=== PATIENT | female | born 1935 ===

== ENCOUNTER 2018-05-07 07:33 | Inpatient (IN) | payer MEDICAID ==
[2018-05-07] MEDS ORDERED: Iodixanol 320 MG/ML 100 ML BOTTLE IV ONE (07:41)
[2018-05-07 07:46] LABS: BASO % 0.5 % (0.0-2.0); EOS # 0.1 K/uL (0.0-0.7); EOS % 0.8 % (0.0-4.0); HEMOGLOBIN 11.6 g/dL (11.0-16.0); LYMPH # 1.9 K/uL (1.0-4.3); LYMPH % 22.9 % (20.0-40.0); MEAN CELL VOLUME 78.5 fL (81.0-99.0); MEAN CORPUSCULAR HEMOGLOBIN 25.2 pg (27.0-31.0); MEAN CORPUSCULAR HGB CONC 32.1 g/dL (33.0-37.0); MEAN PLATELET VOLUME 8.7 fL (7.2-11.7); MONO # 0.4 K/uL (0.0-0.8); MONO % 5.3 % (0.0-10.0); NEUT # 5.8 K/uL (1.8-7.0); NEUT % 70.5 % (50.0-75.0); RBC 4.58 Mil/uL (3.80-5.20); RED CELL DISTRIBUTION WIDTH 15.8 % (11.5-14.5); WHITE BLOOD COUNT 8.2 K/uL (4.8-10.8)
[2018-05-07 08:04] LABS: ALB/GLOB RATIO 1.4 (1.0-2.1); ALT/SGPT 10 U/L (9-52); AST/SGOT 33 U/L (14-36); BLOOD UREA NITROGEN 15 mg/dL (7-17); CALCIUM 9.2 mg/dl (8.6-10.4); GFR NON-AFRICAN AMERICAN > 60; HDL CHOLESTEROL 29 mg/dL (30-70)
[2018-05-07 08:17] LABS: LDL CHOLESTEROL 79 mg/dL (0-129)
[2018-05-07 08:34] VITALS: BMI 32.5
[2018-05-07] MEDS ORDERED: levETIRAcetam 1,000 MG in Sodium Chloride 0.9% 100 ML IVPB STA (08:38)
[2018-05-07 08:53] LABS: INR 7.5; PROTHROMBIN TIME 82.6 SECONDS (9.7-12.2)
--- NOTE | 2018-05-07 08:58 | C.PDOC ---
History Of Present Illness 82 year old female with PMHx of atrial fibrillation, stroke, diabetes, HPT, HLD, renal disease, kidney stones, and breast cancer resulting in double mastectomy presents with the family for evaluation of involuntary face twitching pulling the face towards the left and weakness that started last night. Family notes hx of previous stroke, seen in [facility] [place] at that time for left sided deficit. Per family, current symptoms are consistent with last stroke. Family reports the pt was walking up the stairs last night when she suddenly collapsed to her knees, no trauma sustained. After the fall the pt was put to bed and family notes pt had disturbed sleep throughout the night. Per family the pt is under a lot of stress due to son in laws today. In the ED the pt has slurred speech, questionable due to mouth twitching. Medications: taking coumadin for afib. Code stroke called. Initial contact 7:36am Time Seen by Provider: 05/07/18 07:47 Chief Complaint (Nursing): Weakness/Neurological Deficit History Per: Patient, Family History/Exam Limitations: no limitations Onset/Duration Of Symptoms: Days Current Symptoms Are (Timing): Still Present Fall Associated With With Symptoms: Yes, No Injury As Result Of Fall Recent travel outside of the [facility]: No - Symptoms Of CVA Current Coumadin Use?: Yes Past Medical History Reviewed: Historical Data, Nursing Documentation, Vital Signs Vital Signs: Last Vital Signs Temp 98.9 F 05/07/18 07:34 Pulse 106 H 05/07/18 08:39 Resp 25 H 05/07/18 08:39 BP 159/100 H 05/07/18 08:39 Pulse Ox 99 05/07/18 08:39 - Medical History PMH: HTN, Hyperlipidemia, Kidney Stones, Chronic Kidney Disease Surgical History: Cholecystectomy Family History: States: Unknown Family Hx - Social History Hx Alcohol Use: No Hx Substance Use: No - Immunization History Hx Tetanus Toxoid Vaccination: No Hx Influenza Vaccination: Yes Hx Pneumococcal Vaccination: Yes Review Of Systems Except As Marked, All Systems Reviewed And Found Negative. Constitutional: Negative for: Fever, Chills Cardiovascular: Positive for: Other ((+) left-sided pressure over the chest.) Gastrointestinal: Negative for: Nausea, Vomiting, Diarrhea Neurological: Positive for: Other ((+) heaviness to LT arm.). Negative for: Headache, Dizziness Physical Exam - Physical Exam Appears: No Acute Distress Skin: Warm, Dry, No Rash Head: Atraumatic, Normacephalic Eye(s): bilateral: Normal Inspection, EOMI Oral Mucosa: Moist Neck: Normal ROM, Supple Chest: Symmetrical, No Deformity Cardiovascular: Rhythm Regular, No Murmur Respiratory: Normal Breath Sounds, No Rales, No Rhonchi, No Wheezing Gastrointestinal/Abdominal: Normal Exam, Soft, No Tenderness Extremity: Bilateral: Atraumatic, Normal Color And Temperature Neurological/Psych: Oriented x3, No Normal Speech (slurred. ), Other ((+) Heaviness to LT arm. (+) LUE drift. (+) subjective decreased sensation to LUE. ) ED Course And Treatment - Laboratory Results Result Diagrams: 05/07/18 07:42 05/07/18 07:42 Lab Results: PT 82.6 SECONDS (9.7-12.2) H 05/07/18 07:42 INR 7.5 H* 05/07/18 07:42 APTT 76 SECONDS (21-34) H 05/07/18 07:42 Troponin I < 0.0120 ng/mL (0.00-0.120) 05/07/18 07:42 Total Bilirubin 0.5 mg/dL (0.2-1.3) 05/07/18 07:42 AST 33 U/L (14-36) 05/07/18 07:42 ALT 10 U/L (9-52) 05/07/18 07:42 Alkaline Phosphatase 70 U/L (38-126) 05/07/18 07:42 Total Protein 6.9 g/dL (6.3-8.3) 05/07/18 07:42 Albumin 4.0 g/dL (3.5-5.0) 05/07/18 07:42 Globulin 2.9 gm/dL (2.2-3.9) 05/07/18 07:42 Albumin/Globulin Ratio 1.4 (1.0-2.1) 05/07/18 07:42 ECG: Interpreted By Me, Viewed By Me ECG Rhythm: Atrial Fibrillation Interpretation Of ECG: no st elevations. no wave changes. Rate From EC O2 Sat by Pulse Oximetry: 99 (RA) Pulse Ox Interpretation: Normal - CT Scan/US CT Head Other Rad Studies (CT/US): Read By Radiologist, Radiology Report Reviewed CT/US Interpretation: Other Rad Studies (CT/US): Read By Radiologist. CT/US Interpretation: IMPRESSION: 1. There is generalized parenchymal atrophy noted as demonstrated by symmetrical dilatation of ventricles and sulci. 2. Chronic periventricular and subcortical microvascular disease is seen. 3. Encephalomalacia involving right parietal lobe, most compatible with an old infarct. 4. No acute intracranial pathology. Consider follow up with MRI diffusion if clinically warranted. CTA Neck Other Rad Studies (CT/US): Read By Radiologist, Radiology Report Reviewed CT/US Interpretation: Other Rad Studies (CT/US): Read By Radiologist. CT/US Interpretation: IMPRESSION: Markedly enlarged heterogenous and nodular right thyroid gland compatible with a goiter. Mild scattered atherosclerotic changes are noted throughout left and right carotid system without hemodynamically significant stenosis. Unremarkable CTA of the head and neck otherwise. CT Head w/ IV contrast Other Rad Studies (CT/US): Radiology Report Reviewed MRI Brain Other Rad Studies (CT/US): Read By Radiologist, Radiology Report Reviewed CT/US Interpretation: FINDINGS: HEMORRHAGE: None. DWI: No evidence of an acute or early subacute infarction. BRAIN PARENCHYMA: Examination is of suboptimal diagnostic quality due to patient motion. There is cystic encephalomalacia and gliosis in the right posterior temporal lobe with ex vacuo dilatation of the occipital horn of right lateral ventricle. There are moderate chronic microangiopathic changes. There is no mass, mass effect or abnormal extra-axial fluid collection. The midline sagittal structures are normal. VENTRICLES: There is mild age-related global parenchymal volume loss and proportionate enlargement of the ventricles and cortical sulci. CRANIUM: Unremarkable. ORBITS: Grossly unremarkable. PARANASAL SINUSES/MASTOIDS: Clear. VASCULAR SYSTEM: There are normal signal voids in the larger in tracranial arteries. OTHER FINDINGS: None. IMPRESSION: No acute intracranial abnormality. Cystic encephalomalacia and gliosis in the right posterior temporal lobe, sequela of remote MCA territory infarction. Moderate chronic microangiopathic changes and mild age-related global parenchymal volume loss. NIHSS Stroke Scale 2 - Date/Time Evaluation Performed Date Performed: 05/07/18 Time Performed: 07:35 When Was NIHSS Performed: Baseline - How Severe is the Stroke Level of Consciousness: 0=Alert LOC to Questions: 0=Both comments correct LOC to commands: 0=Obeys both correctly Best Gaze: 0=Normal Visual: 0=No visual loss Facial: 2=Partial (lower face paralysis) Motor Arm - Left: 2=Falls before 10 sec Motor Arm - Right: 0=No drift Motor Leg - Left: 1=Drift before 5 sec Motor Leg - Right: 0=No drift Limb Ataxia: 0=Absent Sensory: 1=Mild to moderate loss Best Language: 0=No aphasia Dysarthia: 1=Mild to moderate slurring Extinction & Inattention (Neglect): 0=Normal, no object Score: 7 rTPA Inclusion/Exclusion - Refusal of Treatment Patient Refused Treatment: No - Inclusion Criteria for Altepase Patient is 18 years or Older: Yes The Clinical Diagnosis of Ischemic Stroke That is Causing a Potentially Disabling Neurological Deficit: Yes Time of Onset is Well Established to be Less Than 270 Minute Before Treatment Would Begin: No Risk/Benefit Discussed With Patient/Family Member Present: No - Exclusion Criteria for Altepase Uncontrolled Hypertension at Time of Treatment (Systolic BP above 185 or Diastolic BP above 110 mmHg): No Active Internal Bleeding: No Known Bleeding Diathesis Including but Not Limited to: Platelets Below 100,000/mm,PTT Above 40 sec After Heparin Use, Current Use of Oral Anitcoagulant With INR Greater Than 1.7 or PT Greater Than 15 secs: No Evidence of an Intracranial Hemorrhage: No Evidence of Major Acute Infarct With Signs Greater Than 1/3 MCA Territory: No Suspicion of Subarachnoid Hemorrhage on Pretreatment Evaluation Even if CT Head Negative For Hemorrhage: No - Warning to TPA With Conditions Following Conditions Weighed Against Anticipated Benefit: No Additional Condition (For 3-4.5 Hour Window): Age Greater Than 80 (strove vs seizure, patient coagulopathic ), Any anticoagulant use prior to admission (Even if INR less than 1.7) Medical Decision Making Medical Decision Making: Initial plan: -Blood sent. -CTA Head/Neck -CT head -EKG -CXR -MRI of brain w/o contrast -Aspirin -Ativan -Keppra Progress/Update: Arrived 7:33am Initial contact 7:36am CAT Scan: no acute changes Case discussed with neurologist cushion worker Dr. Little, possible stroke, unclear of time of onset, possible seizure. Dr. Little recommends 1000 Keppa, 500 bid Ativan, EEG, and MRI. Troponin is unremarkable Disposition Discussed With DrCandy: Lesley Neal Counseled Patient/Family Regarding: Studies Performed, Diagnosis - Disposition Disposition: HOSPITALIZED Disposition Time: 08:56 Condition: GUARDED - Clinical Impression Clinical Impression: CVA (cerebral vascular accident), Seizure - Scribe Statement The provider has reviewed the documentation as recorded by the Scribe (Laine Cavazos) Provider Attestation: All medical record entries made by the Scribe were at my direction and personally dictated by me. I have reviewed the chart and agree that the record accurately reflects my personal performance of the history, physical exam, medical decision making, and the department course for this patient. I have also personally directed, reviewed, and agree with the discharge instructions and disposition. Decision To Admit - Pt Status Changed To: Hospital Disposition Of: Inpatient - Admit Certification Admit to Inpatient:: After my assessment, the patient will require hospitalization for at least two midnights. This is because of the severity of symptoms shown, intensity of services needed, and/or the medical risk in this patient being treated as an outpatient. - InPatient: Physician Admission Certification: I certify that this patient requires 2 or more midnights of care for the following reason:: Patient with multiple issues, stroke vs seizure, elevated INR - . Bed Request Type: Telemetry Admitting Physician: Lesley Neal Patient Diagnosis: CVA (cerebral vascular accident), Seizure
--- NOTE | 2018-05-07 09:26 | C.PDOC ---
History Of Present Illness 82 year old female with PMHx of atrial fibrillation, stroke, diabetes, HPT, HLD, renal disease, kidney stones, and breast cancer resulting in double mastectomy presents with the family for evaluation of involuntary face twitching pulling the face towards the left and weakness that started last night. Family notes hx of previous stroke, seen in [facility] [place] for left sided deficit. Per family, current symptoms are consistent with last stroke. Family reports the pt was walking up the stairs last night when she suddenly collapsed to her knees, no trauma sustained. After the fall the pt was put to bed and family notes pt had disturbed sleep throughout the night. Per family the pt is under a lot of stress due to son in laws today. In the ED the pt has slurred speech, questionable due to mouth twitching. Medications: taking coumadin for afib. Code stroke called. Initial contact 7:36am Time Seen by Provider: 05/07/18 07:47 Chief Complaint (Nursing): Weakness/Neurological Deficit History Per: Patient, Family History/Exam Limitations: no limitations Onset/Duration Of Symptoms: Hrs Current Symptoms Are (Timing): Still Present Fall Associated With With Symptoms: Yes, No Injury As Result Of Fall Recent travel outside of the [facility]: No - Symptoms Of CVA Current Coumadin Use?: Yes Recent Head Trauma: No Past Medical History Reviewed: Historical Data, Nursing Documentation, Vital Signs Vital Signs: Last Vital Signs Temp 98.9 F 05/07/18 07:34 Pulse 106 H 05/07/18 08:39 Resp 25 H 05/07/18 08:39 BP 159/100 H 05/07/18 08:39 Pulse Ox 99 05/07/18 09:21 - Medical History PMH: HTN, Hyperlipidemia, Kidney Stones, Chronic Kidney Disease Surgical History: Cholecystectomy Family History: States: Unknown Family Hx - Social History Hx Alcohol Use: No Hx Substance Use: No - Immunization History Hx Tetanus Toxoid Vaccination: No Hx Influenza Vaccination: Yes Hx Pneumococcal Vaccination: Yes Review Of Systems Except As Marked, All Systems Reviewed And Found Negative. Constitutional: Negative for: Fever, Chills Cardiovascular: Positive for: Other (left-sided pressure over the chest. ) Gastrointestinal: Negative for: Nausea, Vomiting, Diarrhea Neurological: Positive for: Other ((+) heaviness to LT arm. ). Negative for: Headache, Dizziness Physical Exam - Physical Exam Appears: No Acute Distress Skin: Warm, Dry Head: Atraumatic, Normacephalic Eye(s): bilateral: Normal Inspection, EOMI Ear(s): Bilateral: Normal Nose: Normal Oral Mucosa: Moist Neck: Normal ROM, Supple Chest: Symmetrical, No Deformity Cardiovascular: Rhythm Regular, No Murmur Respiratory: Normal Breath Sounds, No Rales, No Rhonchi, No Wheezing Gastrointestinal/Abdominal: Normal Exam, Soft, No Tenderness Extremity: Bilateral: Atraumatic, Normal Color And Temperature Neurological/Psych: Oriented x3, No Normal Speech (slurred. ), Other ((+) Heaviness to LT arm. (+) LUE drift. (+) subjective decreased sensation to LUE. ) ED Course And Treatment - Laboratory Results Result Diagrams: 05/07/18 07:42 05/07/18 07:42 Lab Results: PT 82.6 SECONDS (9.7-12.2) H 05/07/18 07:42 INR 7.5 H* 05/07/18 07:42 APTT 76 SECONDS (21-34) H 05/07/18 07:42 Troponin I < 0.0120 ng/mL (0.00-0.120) 05/07/18 07:42 Total Bilirubin 0.5 mg/dL (0.2-1.3) 05/07/18 07:42 AST 33 U/L (14-36) 05/07/18 07:42 ALT 10 U/L (9-52) 05/07/18 07:42 Alkaline Phosphatase 70 U/L (38-126) 05/07/18 07:42 Total Protein 6.9 g/dL (6.3-8.3) 05/07/18 07:42 Albumin 4.0 g/dL (3.5-5.0) 05/07/18 07:42 Globulin 2.9 gm/dL (2.2-3.9) 05/07/18 07:42 Albumin/Globulin Ratio 1.4 (1.0-2.1) 05/07/18 07:42 ECG: Interpreted By Me, Viewed By Me ECG Rhythm: Atrial Fibrillation Interpretation Of ECG: no st elevations. no wave changes. Rate From EC O2 Sat by Pulse Oximetry: 99 (RA) Pulse Ox Interpretation: Normal - CT Scan/US CT Head w/ IV contrast Other Rad Studies (CT/US): Read By Radiologist CT/US Interpretation: IMPRESSION: 1. There is generalized parenchymal atrophy noted as demonstrated by symmetrical dilatation of ventricles and sulci. 2. Chronic periventricular and subcortical microvascular disease is seen. 3. Encephalomalacia involving right parietal lobe, most compatible with an old infarct. 4. No acute intracranial pathology. Consider follow up with MRI diffusion if clinically warranted. CTA Neck Other Rad Studies (CT/US): Read By Radiologist CT/US Interpretation: IMPRESSION: Markedly enlarged heterogenous and nodular right thyroid gland compatible with a goiter. Mild scattered atherosclerotic changes are noted throughout left and right carotid system without hemodynamically significant stenosis. Unremarkable CTA of the head and neck otherwise. Medical Decision Making Medical Decision Making: Initial plan: -Blood sent. -CTA Head/Neck -CT head -EKG -CXR -MRI of brain w/o contrast -Aspirin -Ativan -Keppra Progress/Update: Arrived 7:33am Initial contact 7:36am CAT Scan: no acute changes Case discussed with neurologist correctional supervising cook Dr. Little, possible stroke, unclear of time of onset, possible seizure. Dr. Little recommends 1000 Keppa, 500 bid Ativan, EEG, and MRI. Troponin is unremarkable Disposition - Disposition Forms: [employer] ([place]) - Clinical Impression Clinical Impression: CVA (cerebral vascular accident), Seizure - Scribe Statement The provider has reviewed the documentation as recorded by the Scribe (Laine Cavazos) All medical record entries made by the Scribe were at my direction and personally dictated by me. I have reviewed the chart and agree that the record accurately reflects my personal performance of the history, physical exam, medical decision making, and the department course for this patient. I have also personally directed, reviewed, and agree with the discharge instructions and disposition.
--- NOTE | 2018-05-07 10:21 | CP.PCM.HP ---
<Toya Bateman - Last Filed: 05/07/18 13:25> History of Present Illness - History of Present Illness History of Present Illness: PGY-1 Toya Bateman D.O. H&P for Dr. Jimenez's service: Patient is an 82 yo female with Afib (on warfarin), HTN, HLD, T2DM, h/o CVA, and h/o breast cancer who presents with l-sided facial twitching and slurred speech. Patient's daughter is at bedside who helps provide the history. She states that the patient had a stroke 2.5 years ago but has no residual deficits. At baseline, patient ambulates but is slow. Last night, the patient was walking up the stairs and fell. Her family was able to catch her so that she only dropped to her knees. After this, the patient went to bed. Upon awakening this morning, the patient's daughter noticed that she had L-sided facial twitching and had unintelligible speech. When she could understand the patient, she said she was "talking nonsense." She also appeared agitated, pulling at her clothes, and seemed confused. Patient's daughter states that she has been at her baseline health prior to this- she has been eating/drinking, urinating/having BMs, denies fevers/chills. Upon arrival to the ED, patient was more coherent, but daughter states that she is not completely back to her mental baseline. She continues to be fatigued and occasionally becomes confused. She is able to move all of her limbs and her speech is clear. Patient's daughter states that twitching has stopped. Patient says that she is thirsty. Patient's daughter says that she has been compliant with her meds, and she gets her INR checked monthly. PMH: Afib (on warfarin), HTN, HLD, T2DM, h/o CVA 2.5 years ago (no residual deficits), breast cancer s/p bilateral mastectomy and chemoradiation (20 years ago in [place]), kidney stones PSH: bilateral mastectomy, cholecystectomy Meds: Warfarin 3 mg PO daily, Remeron 45 mg PO QHS, Metoprolol 25 mg PO BID, Digoxin 0.125 mg PO daily, Lipitor 10 mg PO QHS All: NKA FH: Denies history of stroke, heart disease, cancer SH: Denies alcohol, tobacco, illicit drug use. From [place] PMD: at [facility] Present on Admission - Present on Admission Any Indicators Present on Admission: No History of DVT/PE: No History of Uncontrolled Diabetes: No Urinary Catheter: No Decubitus Ulcer Present: No History Surgical Site Infection Following: None Review of Systems - Review of Systems Systems not reviewed;Unavailable: Altered Mental Status Past Patient History - Infectious Disease Hx of Infectious Diseases: None - Tetanus Immunizations Tetanus Immunization: Unknown - Past Medical History & Family History Past Medical History?: Yes Past Family History: Reviewed and not pertinent - Past Social History Smoking Status: Former Smoker Chewing Tobacco Use: No Cigar Use: No Alcohol: None Drugs: Denies Home Situation {Lives}: With Family - CARDIAC Hx Hypertension: Yes - RENAL Hx Chronic Kidney Disease: Yes Hx Kidney Stones: Yes - ENDOCRINE/METABOLIC Hx Diabetes Mellitus Type 2: Yes - HEMATOLOGICAL/ONCOLOGICAL Hx Cancer: Yes (breast) - PSYCHIATRIC Hx Substance Use: No - SURGICAL HISTORY Hx Cholecystectomy: Yes - ANESTHESIA Hx Anesthesia: Yes Hx Anesthesia Reactions: No Meds Allergies/Adverse Reactions: Allergies Allergy/AdvReac Type Severity Reaction Status Date / Time No Known Allergies Allergy Verified 05/07/18 07:34 Physical Exam - Constitutional Appears: No Acute Distress, Confused - Head Exam Head Exam: ATRAUMATIC, NORMAL INSPECTION - Eye Exam Eye Exam: EOMI, Normal appearance, PERRL - ENT Exam ENT Exam: Mucous Membranes Moist - Neck Exam Neck exam: Positive for: Normal Inspection - Respiratory Exam Respiratory Exam: Clear to Auscultation Bilateral, NORMAL BREATHING PATTERN - Cardiovascular Exam Cardiovascular Exam: REGULAR RHYTHM, Systolic Murmur - GI/Abdominal Exam GI & Abdominal Exam: Soft. absent: Tenderness - Extremities Exam Extremities exam: Positive for: pedal pulses present. Negative for: pedal edema, tenderness - Neurological Exam Neurological exam: Alert Additional comments: Patient alert and oriented to person, able to identify daughter Speech fluent Face symmetrical Patient able to move all limbs independently Motor strength: RUE 5/5, LUE 4/5 RLE 5/5, LLE 4/5 - Psychiatric Exam Additional comments: lethargic - Skin Skin Exam: Dry, Normal Color, Warm Results - Vital Signs Recent Vital Signs: Last Vital Signs Temp 97.6 F 05/07/18 09:56 Pulse 89 05/07/18 09:56 Resp 21 05/07/18 09:56 BP 136/71 05/07/18 09:56 Pulse Ox 99 05/07/18 09:56 - Labs Result Diagrams: 05/07/18 07:42 05/07/18 07:42 Labs: Laboratory Results - last 24 hr 05/07/18 05/07/18 05/07/18 07:42 07:42 07:42 WBC 8.2 RBC 4.58 Hgb 11.6 Hct 35.9 MCV 78.5 L MCH 25.2 L MCHC 32.1 L RDW 15.8 H Plt Count 244 MPV 8.7 Neut % (Auto) 70.5 Lymph % (Auto) 22.9 [place] % (Auto) 5.3 Eos % (Auto) 0.8 Baso % (Auto) 0.5 Neut # (Auto) 5.8 Lymph # (Auto) 1.9 [place] # (Auto) 0.4 Eos # (Auto) 0.1 Baso # (Auto) 0.0 PT 82.6 H INR 7.5 H* APTT 76 H Sodium 137 Potassium 4.8 Chloride 104 Carbon Dioxide 24 Anion Gap 14 BUN 15 Creatinine 0.8 Est GFR ( Amer) > 60 Est GFR (Non-Af Amer) > 60 Random Glucose 107 H Hemoglobin A1c Calcium 9.2 Total Bilirubin 0.5 AST 33 ALT 10 Alkaline Phosphatase 70 Troponin I < 0.0120 Total Protein 6.9 Albumin 4.0 Globulin 2.9 Albumin/Globulin Ratio 1.4 Triglycerides 225 H Cholesterol 138 LDL Cholesterol Direct 79 HDL Cholesterol 29 L Digoxin Blood Type Antibody Screen 05/07/18 05/07/18 05/07/18 07:42 07:42 09:03 WBC RBC Hgb Hct MCV MCH MCHC RDW Plt Count MPV Neut % (Auto) Lymph % (Auto) [place] % (Auto) Eos % (Auto) Baso % (Auto) Neut # (Auto) Lymph # (Auto) [place] # (Auto) Eos # (Auto) Baso # (Auto) PT INR APTT Sodium Potassium Chloride Carbon Dioxide Anion Gap BUN Creatinine Est GFR ( Amer) Est GFR (Non-Af Amer) Random Glucose Hemoglobin A1c 6.8 H Calcium Total Bilirubin AST ALT Alkaline Phosphatase Troponin I Total Protein Albumin Globulin Albumin/Globulin Ratio Triglycerides Cholesterol LDL Cholesterol Direct HDL Cholesterol Digoxin 0.5 L Blood Type A POSITIVE Antibody Screen Negative Assessment & Plan - Assessment and Plan (Free Text) Assessment: Patient is an 82 yo female with Afib (on warfarin), HTN, HLD, T2DM, h/o CVA, and h/o breast cancer who presents with l-sided facial twitching and slurred speech. Code stroke called. Symptoms resolved. CT head and CTA head/neck negative for acute stroke. INR supratherapeutic at 7.5. MRI braina dn echo pending. Plan: Left-sided facial weakness, slurred speech, acute, resolved- evaluate for TIA/CVA, seizure - Code stroke- NIH 7 on admission - Monitor on telemetry - Neuro checks - Seizure precautions - Fall precautions - CT head: no acute pathology - CTA head/neck: no acute pathology - MRI brain pending - Echo pending - EEG pending - Passed bedside swallow eval- dysphagia diet - NS @ 100 mL/hr - Keppra 1000 mg loading dose--> 500 mg PO BID - Neurology consulted (Han) - PT/OT/ST Supratherapeutic INR, acute - PT/INR 82.6/7.5 on admission - HOLD warfarin 3 mg PO daily - Monitor PT/INR Atrial fibrillation, chronic - Monitor on telemetry - Hold warfarin - Digoxin 0.125 mg PO daily - Dig level low (0.5) - Metoprolol 25 mg PO BID Type 2 diabetes mellitus, chronic - A1c 6.8 - Accuchecks ACHS - Hypoglycemic protocol - ISS low Hypertension, chronic - Vitals Q6H - Metoprolol 25 mg PO BID Hyperlipidemia, chronic - TG 225, chol 138, LDL 79, HDL 29 (not fasting) - Crestor 5 mg PO QHS Poor appetite - Remeron 45 mg PO QHS (home med) Ppx: VTE: SCDs, chemical anticoag contraindicated GI: not indicated Diet: dysphagia (pureed/thin liquids) Case discussed with attending, Dr. Neal. <Lesley Neal - Last Filed: 05/07/18 15:23> Results - Vital Signs Recent Vital Signs: Last Vital Signs Temp 97.8 F 05/07/18 11:01 Pulse 85 05/07/18 11:01 Resp 18 05/07/18 11:01 BP 142/64 05/07/18 11:01 Pulse Ox 99 05/07/18 11:01 - Labs Result Diagrams: 05/07/18 07:42 05/07/18 07:42 Labs: Laboratory Results - last 24 hr 05/07/18 05/07/18 05/07/18 07:42 07:42 07:42 WBC 8.2 RBC 4.58 Hgb 11.6 Hct 35.9 MCV 78.5 L MCH 25.2 L MCHC 32.1 L RDW 15.8 H Plt Count 244 MPV 8.7 Neut % (Auto) 70.5 Lymph % (Auto) 22.9 [place] % (Auto) 5.3 Eos % (Auto) 0.8 Baso % (Auto) 0.5 Neut # (Auto) 5.8 Lymph # (Auto) 1.9 [place] # (Auto) 0.4 Eos # (Auto) 0.1 Baso # (Auto) 0.0 PT 82.6 H INR 7.5 H* APTT 76 H Sodium 137 Potassium 4.8 Chloride 104 Carbon Dioxide 24 Anion Gap 14 BUN 15 Creatinine 0.8 Est GFR ( Amer) > 60 Est GFR (Non-Af Amer) > 60 Random Glucose 107 H Hemoglobin A1c Calcium 9.2 Total Bilirubin 0.5 AST 33 ALT 10 Alkaline Phosphatase 70 Troponin I < 0.0120 Total Protein 6.9 Albumin 4.0 Globulin 2.9 Albumin/Globulin Ratio 1.4 Triglycerides 225 H Cholesterol 138 LDL Cholesterol Direct 79 HDL Cholesterol 29 L Digoxin Blood Type Antibody Screen 05/07/18 05/07/18 05/07/18 07:42 07:42 09:03 WBC RBC Hgb Hct MCV MCH MCHC RDW Plt Count MPV Neut % (Auto) Lymph % (Auto) [place] % (Auto) Eos % (Auto) Baso % (Auto) Neut # (Auto) Lymph # (Auto) [place] # (Auto) Eos # (Auto) Baso # (Auto) PT INR APTT Sodium Potassium Chloride Carbon Dioxide Anion Gap BUN Creatinine Est GFR ( Amer) Est GFR (Non-Af Amer) Random Glucose Hemoglobin A1c 6.8 H Calcium Total Bilirubin AST ALT Alkaline Phosphatase Troponin I Total Protein Albumin Globulin Albumin/Globulin Ratio Triglycerides Cholesterol LDL Cholesterol Direct HDL Cholesterol Digoxin 0.5 L Blood Type A POSITIVE Antibody Screen Negative Attending/Attestation - Attestation I have personally seen and examined this patient.: Yes I have fully participated in the care of the patient.: Yes I have reviewed all pertinent clinical information: Yes Notes (Text): slurred speech,left sided weakness and confusion. History taken from her daughter at bedside. had stroke two years ago with out significant residual effect. she was unsteady and fell last night. this morning she was more confused with left weakness. Her INR is high. spoke to Dr han,no candidate for TPA patient had facial twitching since last night as per her daughter . No hsitory of seizure. H/O afib,dm ,breast ca and HTN. follow MRI brain ,continue keppra. Hodl coumadin and follow INR continue home meds digoxin,metoprolol,remoreon .asprin and crestor,continue hydration
--- NOTE | 2018-05-07 11:19 | CP.PCM.CON ---
History of Present Illness - History of Present Illness History of Present Illness: Neurology consult called by Dr. Armijo 82 yr old woman who came in as code stroke, after initially presenting with acute weakness last night. Miss Bonilla was with her family, walking up the stairs and suddenly felt weak, and went to sleep. This morning, she woke up with twitching in the left side of her face, which was almost continuous, and presented to the ER this morning, with right sided weakness and neglect. Code stroke was called and on examination, patient has right sided neglect and right sided weakness. This is new per family. There is no dysarthria, aphasia, and seizures stopped after keppra and ativan administration. NIHSS is 6 currently. She cannot receive TPA due to coumadin, and INR is quite high at 7. ROS: no headache, no nausea, no vomiting, no dizziness, no diarrhea. PMH/PSH: atrial fibrillation, on coumadin, SH/FH:Lives with family, no tobacco, no etoh. Originally from [place]. All: nkda On exam: AAOx2. Exam conducted in [place]. Speech fluent. Can name and repeat. EOMI. Has left sided neglect. No facial droop. Motor: right arm is 5/5, right leg 5/5 Left arm: 4/5, left le/5, made worse by neglect. Sensory: decresed ft, pin in left arm and left leg +2 dtr ul and ll bl. Toes downgoing. No clonus Tried to get patient to stand, but her left leg is extremely weak. Past Patient History - Past Social History Smoking Status: Former Smoker - CARDIAC Hx Hypertension: Yes - RENAL Hx Chronic Kidney Disease: Yes Hx Kidney Stones: Yes - ENDOCRINE/METABOLIC Hx Diabetes Mellitus Type 2: Yes - HEMATOLOGICAL/ONCOLOGICAL Hx Cancer: Yes (breast) - PSYCHIATRIC Hx Substance Use: No - SURGICAL HISTORY Hx Cholecystectomy: Yes - ANESTHESIA Hx Anesthesia: Yes Hx Anesthesia Reactions: No Meds Allergies/Adverse Reactions: Allergies Allergy/AdvReac Type Severity Reaction Status Date / Time No Known Allergies Allergy Verified 05/07/18 07:34 - Medications Medications: Current Medications Aspirin (Aspirin Supp) 300 mg WI DAILY YI Last Admin: 05/07/18 08:56 Dose: Not Given Physical Exam - Head Exam Head Exam: ATRAUMATIC, NORMAL INSPECTION, NORMOCEPHALIC Results - Vital Signs Recent Vital Signs: Last Vital Signs Temp 97.6 F 05/07/18 09:56 Pulse 89 05/07/18 09:56 Resp 21 05/07/18 09:56 BP 136/71 05/07/18 09:56 Pulse Ox 99 05/07/18 09:56 - Labs Result Diagrams: 05/07/18 07:42 05/07/18 07:42 Labs: Laboratory Results - last 24 hr 05/07/18 05/07/18 05/07/18 07:42 07:42 07:42 WBC 8.2 RBC 4.58 Hgb 11.6 Hct 35.9 MCV 78.5 L MCH 25.2 L MCHC 32.1 L RDW 15.8 H Plt Count 244 MPV 8.7 Neut % (Auto) 70.5 Lymph % (Auto) 22.9 [place] % (Auto) 5.3 Eos % (Auto) 0.8 Baso % (Auto) 0.5 Neut # (Auto) 5.8 Lymph # (Auto) 1.9 [place] # (Auto) 0.4 Eos # (Auto) 0.1 Baso # (Auto) 0.0 PT 82.6 H INR 7.5 H* APTT 76 H Sodium 137 Potassium 4.8 Chloride 104 Carbon Dioxide 24 Anion Gap 14 BUN 15 Creatinine 0.8 Est GFR ( Amer) > 60 Est GFR (Non-Af Amer) > 60 Random Glucose 107 H Hemoglobin A1c Calcium 9.2 Total Bilirubin 0.5 AST 33 ALT 10 Alkaline Phosphatase 70 Troponin I < 0.0120 Total Protein 6.9 Albumin 4.0 Globulin 2.9 Albumin/Globulin Ratio 1.4 Triglycerides 225 H Cholesterol 138 LDL Cholesterol Direct 79 HDL Cholesterol 29 L Digoxin Blood Type Antibody Screen 05/07/18 05/07/18 05/07/18 07:42 07:42 09:03 WBC RBC Hgb Hct MCV MCH MCHC RDW Plt Count MPV Neut % (Auto) Lymph % (Auto) [place] % (Auto) Eos % (Auto) Baso % (Auto) Neut # (Auto) Lymph # (Auto) [place] # (Auto) Eos # (Auto) Baso # (Auto) PT INR APTT Sodium Potassium Chloride Carbon Dioxide Anion Gap BUN Creatinine Est GFR ( Amer) Est GFR (Non-Af Amer) Random Glucose Hemoglobin A1c 6.8 H Calcium Total Bilirubin AST ALT Alkaline Phosphatase Troponin I Total Protein Albumin Globulin Albumin/Globulin Ratio Triglycerides Cholesterol LDL Cholesterol Direct HDL Cholesterol Digoxin 0.5 L Blood Type A POSITIVE Antibody Screen Negative - Imaging and Cardiology CT scan - head Status: Image reviewed by me, Report reviewed by me Assessment & Plan - Assessment and Plan (Free Text) Plan: Ct head: shows subacute stroke in the right parietotemporal lobe, ischemic in nature. Cta hEAD AND NECK: report pending. A/P: 82 y rold woman with what appears to be subacute stroke in right parietotemporal region, not TPA candidate, due to coumadin use and uncertain onset of symptoms. plan: 1. Admit to telemetry 2. Hold coumadin as INR is quite high 3. IV fluids Normal saline 100 ccs per hour. 4. MRI Brain without terence. 5. ECHO 6. PT ST OT Thank you Dr. [facility]
[2018-05-07] MEDS ORDERED: Glucagon Recombinant 1 mg Inj IM PRN (13:24)
[2018-05-07] MEDS ORDERED: Dextrose 50% SYRINGE Inj (50 ml) IV PRN (13:24)
[2018-05-07] MEDS: Digoxin 125 mcg (0.125 mg) Tab PO SCH (13:48)
[2018-05-07] MEDS: Sodium Chloride 0.9% 1,000 ML IV SCH (13:48)
--- NOTE | 2018-05-07 14:21 | MRI ---
Date of service: 05/07/2018 PROCEDURE: MRI BRAIN WITHOUT CONTRAST HISTORY: r/o stroke COMPARISON: CT head without contrast performed earlier the same day TECHNIQUE: Multiplanar, multisequence MR images of the brain were obtained without intravenous contrast enhancement. FINDINGS: HEMORRHAGE: None DWI: No evidence of an acute or early subacute infarction. BRAIN PARENCHYMA: Examination is of suboptimal diagnostic quality due to patient motion. There is cystic encephalomalacia and gliosis in the right posterior temporal lobe with ex vacuo dilatation of the occipital horn of right lateral ventricle. There are moderate chronic microangiopathic changes. There is no mass, mass effect or abnormal extra-axial fluid collection. The midline sagittal structures are normal. VENTRICLES: There is mild age-related global parenchymal volume loss and proportionate enlargement of the ventricles and cortical sulci. CRANIUM: Unremarkable. ORBITS: Grossly unremarkable. PARANASAL SINUSES/MASTOIDS: Clear VASCULAR SYSTEM: There are normal signal voids in the larger intracranial arteries. OTHER FINDINGS: None. IMPRESSION: No acute intracranial abnormality. Cystic encephalomalacia and gliosis in the right posterior temporal lobe, sequela of remote MCA territory infarction. Moderate chronic microangiopathic changes and mild age-related global parenchymal volume loss.
--- NOTE | 2018-05-07 15:08 | CT ---
Date of service: 05/07/2018 PROCEDURE: CT HEAD WITHOUT CONTRAST. HISTORY: Code Stroke COMPARISON: None available. TECHNIQUE: Axial computed tomography images were obtained through the head/brain without intravenous contrast. Radiation dose: Total exam DLP = 1033.87 mGy-cm. This CT exam was performed using one or more of the following dose reduction techniques: Automated exposure control, adjustment of the mA and/or kV according to patient size, and/or use of iterative reconstruction technique. FINDINGS: HEMORRHAGE: No intracranial hemorrhage. BRAIN: No mass effect or edema. Encephalomalacia right temporoparietal. No evidence of acute infarct. Patchy periventricular and deep/subcortical white matter lucency consistent with chronic microvascular ischemic change. Small old left basal ganglia lacunar infarcts. VENTRICLES: Unremarkable. No hydrocephalus. CALVARIUM: Unremarkable. PARANASAL SINUSES: Chronic bilateral maxillary sinusitis. MASTOID AIR CELLS: Unremarkable as visualized. No inflammatory changes. OTHER FINDINGS: None. IMPRESSION: No evidence of acute infarct. No intracranial mass or hemorrhage. Chronic paranasal sinusitis. 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 The preliminary findings for this examination were reported by [facility] at 12:19 a.m. on 05/07/2018. There is concurrence of this report with the preliminary findings.
--- NOTE | 2018-05-07 16:26 | CT ---
Date of service: 05/07/2018 PROCEDURE: CT Angiography of the neck and brain HISTORY: Code stroke COMPARISON: Comparison made with concurrent CT scan brain.. TECHNIQUE: Contiguous axial images of the neck and brain were obtained from the level of the vertex of the skull to the superior mediastinum in the arteriographic phase of enhancement. Coronal and sagittal reformats or also generated. IV contrast dose: 100 cc Visipaque 320 Radiation dose: Total exam DLP = 453.0 mGy-cm. This CT exam was performed using one or more of the following dose reduction techniques: Automated exposure control, adjustment of the mA and/or kV according to patient size, and/or use of iterative reconstruction technique. FINDINGS: Mild calcified atherosclerotic plaque seen along the aortic arch and origins of the great vessels however the aorta is widely patent. The common carotid arteries are also widely patent with no evidence of dissection. Minor crescentic calcified plaque along the medial aspect left carotid bifurcation however no evidence of significant stenosis. The distal internal carotid arteries including the petrous cavernous and supraclinoid segments also patent. There are however mild calcified atherosclerotic plaque changes both cavernous carotid and supraclinoid segments right greater than left left-side. Changes result in mild narrowing more so on the right side. The vertebral arteries are patent throughout without evidence of dissection. The mild asymmetry of the vertebral arteries with the left-side slightly larger in caliber than the right distally. Basilar artery is patent. There is mild asymmetry of the A1 segments right side smaller in caliber compared to the left side. The distal branches of the anterior, middle and posterior cerebral arteries are patent and relatively symmetric so far as can be seen. No evidence of large aneurysm nor vascular malformation. OTHER FINDINGS: Enlarged heterogeneous nodular appearing right lobe thyroid gland; recommend follow-up thyroid ultrasound. Suspect chronic changes of COPD. IMPRESSION: No evidence of occlusion dissection or significant stenosis despite some mild calcified plaque changes at several locations of the of both carotid circulations as detailed above Enlarged heterogeneous nodular appearing right lobe thyroid gland for which thyroid ultrasound follow-up is recommended.
--- NOTE | 2018-05-07 16:48 | RAD ---
Date of service: 05/07/2018 HISTORY: Code Stroke COMPARISON: No prior. TECHNIQUE: 1 view obtained. FINDINGS: LUNGS: No active pulmonary disease. PLEURA: No significant pleural effusion identified, no pneumothorax apparent. CARDIOVASCULAR: No aortic atherosclerotic calcification present. Normal cardiac size. No pulmonary vascular congestion. OSSEOUS STRUCTURES: No significant abnormalities. VISUALIZED UPPER ABDOMEN: Normal. OTHER FINDINGS: None. IMPRESSION: No active disease.
[2018-05-07] MEDS: (Novolin R) Insulin Human Regular 100 units/ml vial SC SCH ×2 (17:00→21:27)
[2018-05-08] MEDS: Sodium Chloride 0.9% 1,000 ML IV SCH ×3 (00:03→20:21)
--- NOTE | 2018-05-08 07:50 | CP.PCM.PN ---
<Toya Bateman - Last Filed: 05/08/18 20:03> Subjective - Date & Time of Evaluation Date of Evaluation: 05/08/18 Time of Evaluation: 07:47 - Subjective Subjective: PGY-1 Toya Bateman D.O. Medicine progress note for Dr. Palacios's service: Patient was seen and examined this morning. Over night, patient was agitated and delirious requiring 2 doses of Ativan. Patient's daughter stayed with her all night. She reported that patient was pulling at her clothes and bedding, and she was attempting to take the daughter's keys and leave. She was not aware that she was in a hospital or why. Daughter says this is an acute change from baseline. At time of exam, patient is lethargic. She is oriented to self and place. She is able to state the year and president. Objective - Vital Signs/Intake and Output Vital Signs (last 24 hours): Temp Pulse Resp BP Pulse Ox 97.3 F L 90 18 128/65 96 05/08/18 06:30 05/08/18 06:30 05/08/18 06:30 05/08/18 06:30 05/08/18 06:30 - Medications Medications: Current Medications Aspirin (Aspirin Supp) 300 mg [place] DAILY [facility] Last Admin: 05/07/18 08:56 Dose: Not Given Dextrose (Dextrose 50% Inj) 0 ml IV STAT PRN; Protocol PRN Reason: Hypoglycemia Protocol Dextrose (Glutose 15) 0 gm PO ONCE PRN; Protocol PRN Reason: Hypoglycemia Protocol Digoxin (Digoxin) 0.125 mg PO DAILY [facility] Last Admin: 05/07/18 13:48 Dose: 0.125 mg Glucagon (Glucagen Diagnostic Kit) 0 mg IM STAT PRN; Protocol PRN Reason: Hypoglycemia Protocol Dextrose (Dextrose 5% In Water 1000 Ml) 1,000 mls @ 0 mls/hr IV .Q0M PRN; Protocol PRN Reason: Hypoglycemia Protocol Sodium Chloride (Sodium Chloride 0.9%) 1,000 mls @ 100 mls/hr IV .Q10H [facility] Last Admin: 05/08/18 00:03 Dose: Not Given Insulin Human Regular (Novolin R) 0 unit SC ACHS [facility]; Protocol Last Admin: 05/07/18 21:27 Dose: Not Given Levetiracetam (Keppra) 500 mg PO BID [facility] Last Admin: 05/07/18 18:45 Dose: 500 mg Metoprolol Tartrate (Lopressor) 25 mg PO BID [facility] Last Admin: 05/07/18 18:46 Dose: 25 mg Mirtazapine (Remeron) 45 mg PO [facility] Last Admin: 05/07/18 22:20 Dose: 45 mg Nicotine (Nicoderm Cq) 1 patch TD DAILY [facility] Rosuvastatin Calcium (Crestor) 5 mg PO [facility] Last Admin: 05/07/18 22:21 Dose: 5 mg - Labs Labs: 05/07/18 07:42 05/07/18 07:42 PT 82.6 SECONDS (9.7-12.2) H 05/07/18 07:42 INR 7.5 H* 05/07/18 07:42 APTT 76 SECONDS (21-34) H 05/07/18 07:42 - Constitutional Appears: No Acute Distress, Other (lethargic) - Head Exam Head Exam: ATRAUMATIC, NORMAL INSPECTION - Eye Exam Eye Exam: EOMI, Normal appearance, PERRL (small) - ENT Exam ENT Exam: Mucous Membranes Moist - Neck Exam Neck Exam: Normal Inspection - Respiratory Exam Respiratory Exam: Clear to Ausculation Bilateral, NORMAL BREATHING PATTERN - Cardiovascular Exam Cardiovascular Exam: RRR, +S1, +S2 - GI/Abdominal Exam GI & Abdominal Exam: Soft. absent: Tenderness - Extremities Exam Extremities Exam: Normal Inspection - Back Exam Back Exam: NORMAL INSPECTION - Neurological Exam Neurological Exam: Alert, Awake, CN II-XII Intact Neuro motor strength exam: Left Upper Extremity: 5, Right Upper Extremity: 5, Left Lower Extremity: 5, Right Lower Extremity: 5 - Skin Skin Exam: Dry, Normal Color, Warm Assessment and Plan - Assessment and Plan (Free Text) Assessment: Patient is an 82 yo female with Afib (on warfarin), HTN, HLD, T2DM, h/o CVA, and h/o breast cancer who presents with l-sided facial twitching and slur red speech. Code stroke called. Symptoms resolved. CT head and CTA head/neck negative for acute stroke. MRI brain negative. INR supratherapeutic. Echo pending. Plan: Altered mental status, Lethargy, Left-sided facial weakness (resolved), slurred speech (resolved), acute - Code stroke- NIH 7 on admission - Monitor on telemetry - Neuro checks - Seizure precautions - Aspiration precautions - Fall precautions - CT head: no acute pathology - Repeat negative - CTA head/neck: no acute pathology - MRI brain: No acute intracranial abnormality. Cystic encephalomalacia and gliosis in the right posterior temporal lobe, sequela of remote MCA territory infarction. Moderate chronic microangiopathic changes and mild age-related global parenchymal volume loss. - CXR: no active disease - UA negative - Echo pending - EEG pending - Passed bedside swallow eval- dysphagia diet - NS @ 100 mL/hr - Keppra 500 mg PO BID - Neurology consulted (Little) - PT/OT/ST Supratherapeutic INR, acute - PT/INR 82.6/7.5 on admission--> INR 7.2 - HOLD warfarin 3 mg PO daily - Vit K 5 mg PO x1 - Monitor PT/INR Atrial fibrillation, chronic - Monitor on telemetry - Hold warfarin - Digoxin 0.125 mg PO daily - Dig level low (0.5) - Metoprolol 25 mg PO BID Type 2 diabetes mellitus, chronic - A1c 6.8 - Accuchecks ACHS - BG range 100-170 - Hypoglycemic protocol - ISS low Hypertension, chronic - Vitals Q6H - Metoprolol 25 mg PO BID Hyperlipidemia, chronic - TG 225, chol 138, LDL 79, HDL 29 (not fasting) - Crestor 5 mg PO QHS Poor appetite - Remeron 45 mg PO QHS (home med) Ppx: VTE: SCDs, chemical anticoag contraindicated due to elevated IINR GI: not indicated Diet: dysphagia (pureed/thin liquids) Case discussed with attending, Dr. Palacios. <Anita Palacios V - Last Filed: 05/08/18 20:32> Objective - Vital Signs/Intake and Output Vital Signs (last 24 hours): Temp Pulse Resp BP Pulse Ox 97.9 F 83 20 133/82 95 05/08/18 15:00 05/08/18 15:00 05/08/18 15:00 05/08/18 15:00 05/08/18 15:00 Intake and Output: 05/08/18 05/09/18 18:59 06:59 Intake Total 1300 Balance 1300 - Medications Medications: Current Medications Dextrose (Dextrose 50% Inj) 0 ml IV STAT PRN; Protocol PRN Reason: Hypoglycemia Protocol Dextrose (Glutose 15) 0 gm PO ONCE PRN; Protocol PRN Reason: Hypoglycemia Protocol Digoxin (Digoxin) 0.125 mg PO DAILY [facility] Last Admin: 05/08/18 10:13 Dose: 0.125 mg Glucagon (Glucagen Diagnostic Kit) 0 mg IM STAT PRN; Protocol PRN Reason: Hypoglycemia Protocol Dextrose (Dextrose 5% In Water 1000 Ml) 1,000 mls @ 0 mls/hr IV .Q0M PRN; Protocol PRN Reason: Hypoglycemia Protocol Sodium Chloride (Sodium Chloride 0.9%) 1,000 mls @ 100 mls/hr IV .Q10H [facility] Last Admin: 05/08/18 10:14 Dose: 100 mls/hr Insulin Human Regular (Novolin R) 0 unit SC ACHS [facility]; Protocol Last Admin: 05/08/18 16:35 Dose: Not Given Levetiracetam (Keppra) 500 mg PO BID [facility] Last Admin: 05/08/18 17:09 Dose: 500 mg Metoprolol Tartrate (Lopressor) 25 mg PO BID [facility] Last Admin: 05/08/18 17:10 Dose: 25 mg Mirtazapine (Remeron) 45 mg PO [facility] Last Admin: 05/07/18 22:20 Dose: 45 mg Nicotine (Nicoderm Cq) 1 patch TD DAILY PRN PRN Reason: nicotine withdrawal Rosuvastatin Calcium (Crestor) 5 mg PO [facility] Last Admin: 05/07/18 22:21 Dose: 5 mg - Labs Labs: 05/08/18 08:26 05/08/18 08:26 PT 78.9 SECONDS (9.7-12.2) H 05/08/18 08:26 INR 7.2 H* 05/08/18 08:26 APTT 76 SECONDS (21-34) H 05/07/18 07:42 Attending/Attestation - Attestation I have personally seen and examined this patient.: Yes I have fully participated in the care of the patient.: Yes I have reviewed all pertinent clinical information, including history, physical exam and plan: Yes Notes (Text): Patient seen, examined and case discussed with medical administrative technician. Patient seen with daughter at bedside assisting in translation. Patient is not oriented to day of the week, year, month. She is able to report Trump is the President. Patient's strength is weaker on the left upper and lower extremities. Patient's INR is elevated. No noted bleeding episodes. Repeat CT head noted no new findings. Patient was ordered brain mri by neurology for initial evaluation did not order for second repeat. Patient's INR supra therapuetic; did not receive Coumadin overnight. Given small dose of vitamin K today. Will monitor INR. Assessment/Plan 1. Altered mental status, Lethargy, Left-sided facial weakness (resolved), slurred speech (resolved), acute Assessment/Plan * Neurology (Dr. Little) on board help appreciated * Code stroke- NIH 7 on admission * Monitor on telemetry * Neuro checks * Seizure precautions * Aspiration precautions * Fall precautions * CT head (05/07/18):no evidence of acute infarct. No intracranial mass or hemorrhage. chronic paranasal sinusitis. Old right temporoparietal encephalomalacia * CT head/neck (05/07/18); no evidence of occlusion dissection or significant stenosis despite some mild calcifed plaqye changes at several locations of the of both cartoid circulations. enlarged heterogenous nodular appearing right lobe thryoid gland * MRI brain: No acute intracranial abnormality. Cystic encephalomalacia and gliosis in the right posterior temporal lobe, sequela of remote MCA territory infarction. Moderate chronic microangiopathic changes and mild age-related global parenchymal volume loss. * CT head (05/08/18): no intracranial hemorrhage. no evidence of acute infarct. probable remote infarct right temporoparietal 2. Supratherapeutic INR, acute Assessment/Plan * no bleeding no petechaie; no change in CT imaging. * Given dose of vitamin K 5mg PO X1 * Followup INR * Patient on coumadin as outpatient for atrial fibrillation 3. Atrial fibrillation, chronic Assessment/Plan * Monitor on telemetry * Hold warfarin * Digoxin 0.125 mg PO daily * Dig level low (0.5) * Metoprolol 25 mg PO BID 4. Type 2 diabetes mellitus, chronic Assessment/Plan * A1c 6.8 * Accuchecks ACHS - BG range 100-170 * Hypoglycemic protocol * ISS low 5. Hypertension, chronic Assessment/Plan * Metoprolol 25 mg PO BID * NS 100cc.hr 6. Hyperlipidemia, chronic Assessment/Plan * TG 225, chol 138, LDL 79, HDL 29 (not fasting) * Crestor 5 mg PO QHS 7. Poor appetite Assessment/Plan * Remeron 45 mg PO QHS (home med) 8. Low Magnesium Assessment/Plan * replete 9. Ppx: * VTE: SCDs, chemical anticoag contraindicated due to elevated IINR * GI: not indicated * Diet: dysphagia (pureed/thin liquids) * Palliative care for creation of POLST * NS 100cc/hr * PT/OT eval
[2018-05-08] MEDS: (Novolin R) Insulin Human Regular 100 units/ml vial SC SCH ×4 (08:00→22:11)
[2018-05-08 08:37] LABS: BASO % 0.3 % (0.0-2.0); EOS # 0.1 K/uL (0.0-0.7); EOS % 1.4 % (0.0-4.0); HEMOGLOBIN 10.6 g/dL (11.0-16.0); LYMPH # 1.4 K/uL (1.0-4.3); LYMPH % 21.7 % (20.0-40.0); MEAN CORPUSCULAR HEMOGLOBIN 25.1 pg (27.0-31.0); MEAN CORPUSCULAR HGB CONC 31.7 g/dL (33.0-37.0); MONO # 0.4 K/uL (0.0-0.8); NEUT # 4.4 K/uL (1.8-7.0); NEUT % 70.6 % (50.0-75.0); RBC 4.23 Mil/uL (3.80-5.20); RED CELL DISTRIBUTION WIDTH 16.2 % (11.5-14.5); WHITE BLOOD COUNT 6.2 K/uL (4.8-10.8)
[2018-05-08 09:04] LABS: PROTHROMBIN TIME 78.9 SECONDS (9.7-12.2)
[2018-05-08 09:05] LABS: INR 7.2
[2018-05-08 09:07] LABS: ALB/GLOB RATIO 1.2 (1.0-2.1); ALBUMIN 3.1 g/dL (3.5-5.0); ALT/SGPT 17 U/L (9-52); AST/SGOT 19 U/L (14-36); BLOOD UREA NITROGEN 8 mg/dL (7-17); CALCIUM 8.8 mg/dl (8.6-10.4); GFR NON-AFRICAN AMERICAN > 60
[2018-05-08] MEDS: Digoxin 125 mcg (0.125 mg) Tab PO SCH (10:13)
[2018-05-08] MEDS: Magnesium Sulfate 1 gm in D5W 1 GM/100 ML BAG IVPB SCH (11:28)
--- NOTE | 2018-05-08 11:30 | CT ---
Date of service: 05/08/2018 PROCEDURE: CT HEAD WITHOUT CONTRAST. HISTORY: lethargy COMPARISON: 05/07/2018 TECHNIQUE: Axial computed tomography images were obtained through the head/brain without intravenous contrast. Radiation dose: Total exam DLP = 1112.8 mGy-cm. This CT exam was performed using one or more of the following dose reduction techniques: Automated exposure control, adjustment of the mA and/or kV according to patient size, and/or use of iterative reconstruction technique. FINDINGS: HEMORRHAGE: No intracranial hemorrhage. BRAIN: No mass effect or edema. No evidence of acute infarct. Encephalomalacia/gliosis right temporoparietal likely reflecting remote infarct. Small old left lentiform nucleus lacunar infarcts. VENTRICLES: Unremarkable. No hydrocephalus. CALVARIUM: Unremarkable. PARANASAL SINUSES: Unremarkable as visualized. No significant inflammatory changes. MASTOID AIR CELLS: Unremarkable as visualized. No inflammatory changes. OTHER FINDINGS: None. IMPRESSION: No intracranial hemorrhage. No evidence of acute infarct. Probable remote infarct right temporoparietal.
[2018-05-08 13:32] LABS: URINE BACTERIA RARE (<OCC); URINE BILIRUBIN NEGATIVE (NEGATIVE); URINE BLOOD NEGATIVE (NEGATIVE); URINE CLARITY Clear (Clear); URINE COLOR Straw (YELLOW); URINE GLUCOSE (UA) NORMAL (Normal); URINE LEUKOCYTE ESTERASE NEG Leu/uL (Negative); URINE PROTEIN NEGATIVE (NEGATIVE); URINE UROBILINOGEN NORMAL mg/dL (0.2-1.0)
[2018-05-08] MEDS ORDERED: Phytonadione 10 mg/ml Inj (Adult) SC ONE (20:08)
[2018-05-08] MEDS ORDERED: Phytonadione 2.5 MG/0.5 TAB TAB PO ONE (20:10)
[2018-05-09] MEDS: Sodium Chloride 0.9% 1,000 ML IV SCH ×2 (06:36→16:29)
[2018-05-09 07:49] LABS: BASO % 0.2 % (0.0-2.0); EOS # 0.2 K/uL (0.0-0.7); EOS % 2.7 % (0.0-4.0); HEMOGLOBIN 11.6 g/dL (11.0-16.0); LYMPH # 1.2 K/uL (1.0-4.3); LYMPH % 16.5 % (20.0-40.0); MEAN CORPUSCULAR HEMOGLOBIN 24.9 pg (27.0-31.0); MEAN CORPUSCULAR HGB CONC 31.6 g/dL (33.0-37.0); MONO # 0.4 K/uL (0.0-0.8); MONO % 5.9 % (0.0-10.0); NEUT # 5.6 K/uL (1.8-7.0); NEUT % 74.7 % (50.0-75.0); RBC 4.66 Mil/uL (3.80-5.20); RED CELL DISTRIBUTION WIDTH 16.1 % (11.5-14.5); WHITE BLOOD COUNT 7.5 K/uL (4.8-10.8)
[2018-05-09] MEDS: (Novolin R) Insulin Human Regular 100 units/ml vial SC SCH ×4 (08:04→21:38)
[2018-05-09 08:12] LABS: ALB/GLOB RATIO 1.2 (1.0-2.1); ALBUMIN 3.1 g/dL (3.5-5.0); ALT/SGPT 20 U/L (9-52); AST/SGOT 21 U/L (14-36); BLOOD UREA NITROGEN 6 mg/dL (7-17); CALCIUM 8.4 mg/dl (8.6-10.4); GFR NON-AFRICAN AMERICAN > 60; INR 3.5; PROTHROMBIN TIME 38.7 SECONDS (9.7-12.2)
--- NOTE | 2018-05-09 08:15 | CP.PCM.PN ---
Subjective - Date & Time of Evaluation Date of Evaluation: 05/09/18 Time of Evaluation: 08:14 - Subjective Subjective: PGY-1 Tyoa Bateman D.O. Medicine progress note for Dr. Neal's service: Patient was seen and examined this morning. Over night, patient required 0.25 IV of Ativan for agitation. Patient is asleep at time of exam. Family is a bedside and states that the patient was awake all night, confused, disoriented, having hallucinations, and pulling at her clothes. Patient is able to be awoken and is alert, oriented, and follows commands. She is still lethargic. She says she is unable to sit up. At home, she ambulates independently. Objective - Vital Signs/Intake and Output Vital Signs (last 24 hours): Temp Pulse Resp BP Pulse Ox 98.1 F 90 20 150/76 95 05/09/18 00:00 05/09/18 00:00 05/09/18 00:00 05/09/18 00:00 05/09/18 00:00 - Medications Medications: Current Medications Dextrose (Dextrose 50% Inj) 0 ml IV STAT PRN; Protocol PRN Reason: Hypoglycemia Protocol Dextrose (Glutose 15) 0 gm PO ONCE PRN; Protocol PRN Reason: Hypoglycemia Protocol Digoxin (Digoxin) 0.125 mg PO DAILY@1800 [facility] Glucagon (Glucagen Diagnostic Kit) 0 mg IM STAT PRN; Protocol PRN Reason: Hypoglycemia Protocol Dextrose (Dextrose 5% In Water 1000 Ml) 1,000 mls @ 0 mls/hr IV .Q0M PRN; Protocol PRN Reason: Hypoglycemia Protocol Sodium Chloride (Sodium Chloride 0.9%) 1,000 mls @ 100 mls/hr IV .Q10H [facility] Last Admin: 05/09/18 06:36 Dose: 100 mls/hr Insulin Human Regular (Novolin R) 0 unit SC ACHS [facility]; Protocol Last Admin: 05/09/18 08:04 Dose: Not Given Levetiracetam (Keppra) 500 mg PO BID [facility] Last Admin: 05/08/18 17:09 Dose: 500 mg Metoprolol Tartrate (Lopressor) 25 mg PO BID [facility] Last Admin: 05/08/18 17:10 Dose: 25 mg Mirtazapine (Remeron) 45 mg PO HS [facility] Last Admin: 05/08/18 21:05 Dose: 45 mg Nicotine (Nicoderm Cq) 1 patch TD DAILY PRN PRN Reason: nicotine withdrawal Rosuvastatin Calcium (Crestor) 5 mg PO HS [facility] Last Admin: 05/08/18 21:10 Dose: 5 mg - Labs Labs: 05/09/18 07:15 05/09/18 07:15 PT 38.7 SECONDS (9.7-12.2) H D 05/09/18 07:15 INR 3.5 H* D 05/09/18 07:15 APTT 76 SECONDS (21-34) H 05/07/18 07:42 - Additional Findings Additional findings: - Constitutional Appears: No Acute Distress, Other (lethargic) - Head Exam Head Exam: ATRAUMATIC, NORMAL INSPECTION - Eye Exam Eye Exam: EOMI, Normal appearance, PERRL (small) - ENT Exam ENT Exam: Mucous Membranes Moist - Neck Exam Neck Exam: Normal Inspection - Respiratory Exam Respiratory Exam: Clear to Auscultation Bilateral, NORMAL BREATHING PATTERN - Cardiovascular Exam Cardiovascular Exam: RRR, +S1, +S2 - GI/Abdominal Exam GI & Abdominal Exam: Soft. absent: Tenderness - Extremities Exam Extremities Exam: Normal Inspection - Back Exam Back Exam: NORMAL INSPECTION - Neurological Exam Neurological Exam: Alert, Awake, CN II-XII Intact Neuro motor strength exam: Left Upper Extremity: 5, Right Upper Extremity: 5, Left Lower Extremity: 5, Right Lower Extremity: 5 - Skin Skin Exam: Dry, Normal Color, Warm Assessment and Plan - Assessment and Plan (Free Text) Assessment: Patient is an 82 yo female with Afib (on warfarin), HTN, HLD, T2DM, h/o CVA, and h/o breast cancer who presents with l-sided facial twitching and slurred speech. Code stroke called. Symptoms resolved. CT head and CTA head/neck negative for acute stroke. MRI brain negative. INR supratherapeutic. Echo showed severe sclerotic aortic valve. EEG pending. Patient is experiencing delirium and has been unable to sleep well at night. This is hindering her progress with PT during the day. This was explained to multiple family members. Plan: Transient ischemic attack, acute - Code stroke- NIH 7 on admission - Monitor on telemetry- patient now refusing - Neuro checks - Seizure precautions - Aspiration precautions - Fall precautions - CT head: no acute infarct or hemorrhage, no mass, old right temporoparietal - Repeat negative - CTA head/neck: no acute pathology - MRI brain: No acute intracranial abnormality. Cystic encephalomalacia and gliosis in the right posterior temporal lobe, sequela of remote MCA territory infarction. Moderate chronic microangiopathic changes and mild age-related global parenchymal volume loss. - CXR: no active disease - UA negative - Echo: normal EF, mild LVH, severely sclerotic AV - EEG pending - Passed bedside swallow eval- dysphagia diet - NS @ 100 mL/hr - Keppra 500 mg PO BID - Neurology consulted (Little) - PT/OT/ST Supratherapeutic INR, acute - PT/INR 82.6/7.5 on admission--> INR 3.5 - HOLD warfarin 3 mg PO daily- consider starting at lower dose tomorrow depending on INR - Vit K 5 mg PO x1 - Monitor PT/INR Delirium- 2/2 to age/dementia, hospitalization - Encourage orienting patient and keeping her awake during the day - Start Ambien 5 mg PO @ 8PM - Avoid long-acting sedatives Atrial fibrillation, chronic - Monitor on telemetry- patient refusing tele monitor - Hold warfarin - Digoxin 0.125 mg PO daily - Dig level low (0.5) - Metoprolol 25 mg PO BID Type 2 diabetes mellitus, chronic - A1c 6.8 - Accuchecks ACHS - BG range 100-180 - Hypoglycemic protocol - ISS low Hypertension, chronic - Vitals Q6H - Metoprolol 25 mg PO BID Hyperlipidemia, chronic - TG 225, chol 138, LDL 79, HDL 29 (not fasting) - Crestor 5 mg PO QHS Poor appetite - Remeron 45 mg PO QHS (home med) Dementia, chronic, mild - Palliative consulted- patient now DNR/DNI Ppx: VTE: SCDs, chemical anticoag contraindicated due to elevated INR GI: not indicated Diet: dysphagia (pureed/thin liquids) Case discussed with attending, Dr. Neal.
--- NOTE | 2018-05-09 10:53 | CARD ---
APPROVED REPORT Date of service: 05/09/2018 EXAM: Two-dimensional and M-mode echocardiogram with Doppler and color Doppler. INDICATION CVA/TIA Murmur RISK FACTORS Hypertension Hyperlipidemia Diabetes 2D DIMENSIONS IVSd0.8 (0.7-1.1cm)Aortic Root (2D)2.9 (2.0-3.7cm) LVDd3.7 (3.9-5.9cm)PWd0.6 (0.7-1.1cm) LA [id number] (18-58mL)LVDs2.2 (2.5-4.0cm) FS (%) 42.0 %LVEF (%)73.8 (>50%) LVEF (Elizondo's)58.76 %IVC0.00 cm M-Mode DIMENSIONS Left Atrium (MM)4.59 (2.5-4.0cm)IVSd0.55 (0.7-1.1cm) Aortic Root2.34 (2.2-3.7cm)LVDd4.07 (4.0-5.6cm) Aortic Cusp Exc.1.37 (1.5-2.0cm)PWd0.55 (0.7-1.1cm) FS (%) 40 %LVDs2.07 (2.0-3.8cm) LVEF (%)70 (>50%) Mitral Valve MV E Oetblhnd771.0cm/sMV A Hdavnbps49.8cm/sE/A ratio3.4 TDI Lateral E' Peak V7.32cm/sMedial E' Peak V4.67cm/sE/Lateral E'17.8 E/Medial E'27.8 Tricuspid Valve TR Peak [id number]/sTR Peak Gr.[id number] LEFT VENTRICLE The left ventricle is normal size. There is mild concentric left ventricular hypertrophy. The left ventricular function is normal. The left ventricular ejection fraction is within the normal range. There is normal LV segmental wall motion. RIGHT VENTRICLE The right ventricle is normal size. There is normal right ventricular wall thickness. The right ventricular systolic function is normal. ATRIA The left atrium is mildly dilated. The right atrium is borderline dilated. AORTIC VALVE The aortic valve is severely sclerotic. There is trace aortic regurgitation. MITRAL VALVE The mitral valve is calcified Mitral regurgitation is trace. TRICUSPID VALVE There is mild to moderate tricuspid regurgitation. There is mild to moderate pulmonary hypertension. PULMONIC VALVE There is trace pulmonic valvular regurgitation. GREAT VESSELS The aortic root is normal in size. The IVC is normal in size and collapses >50% with inspiration. PERICARDIAL EFFUSION There is a small loculated anterior pericardial effusion. <Conclusion> There is mild concentric left ventricular hypertrophy. The left ventricular function is normal. The left ventricular ejection fraction is within the normal range. There is normal LV segmental wall motion. The aortic valve is severely sclerotic. There is mild to moderate tricuspid regurgitation. There is mild to moderate pulmonary hypertension.
--- NOTE | 2018-05-09 13:33 | CP.PCM.CON ---
History of Present Illness - History of Present Illness History of Present Illness: palliative consult requested by Doctor Suzanne for goals of care/POLST discussion Patient is a 82 yo female admitted from home with involuntarily face twitching, left facial droop and weakness since the night of admission. Per family, patient's symptoms were similar to those when she had her first CVA. patient was left with left sided weakness from the first CVA. CT head suggested subacute CVA of right lobe. Neuro consult called. Patient was not candidate for TPA due to INR of 7.2. Coumadine on hold. INR today 3.5. Kepra 500 mg PO BID. Patient was agitated over last night, daughter remained at bed side. patient needed Ativan to calm her down as she insisted on leaving hospital and go home even though she did not know where or why she was. PMH: breast CA, S/P B/L mastectomy, CVA, DM, HLD Soc. Hx: , lives at home with daughter rinku. Hx: unknown Review of Systems - Review of Systems All systems: reviewed and no additional remarkable complaints except Review of Systems: ROS unobtained from patient due to lethargy and AMS. Per nursing, patient was given Ativan over night for severe aggitation. Past Patient History - Infectious Disease Hx of Infectious Diseases: None - Tetanus Immunizations Tetanus Immunization: Unknown - Past Medical History & Family History Past Medical History?: Yes Past Family History: Reviewed and not pertinent - Past Social History Smoking Status: Former Smoker Chewing Tobacco Use: No Cigar Use: No Alcohol: None Drugs: Denies Home Situation {Lives}: With Family - CARDIAC Hx Hypertension: Yes - PULMONARY Hx Respiratory Disorders: No - NEUROLOGICAL Hx Neurological Disorder: No - HEENT Hx HEENT Problems: No - RENAL Hx Chronic Kidney Disease: Yes Hx Kidney Stones: Yes - ENDOCRINE/METABOLIC Hx Diabetes Mellitus Type 2: Yes - HEMATOLOGICAL/ONCOLOGICAL Hx Cancer: Yes (breast) - INTEGUMENTARY Hx Dermatological Problems: No - MUSCULOSKELETAL/RHEUMATOLOGICAL Hx Musculoskeletal Disorders: No Hx Falls: No - GASTROINTESTINAL Hx Gastrointestinal Disorders: No - GENITOURINARY/GYNECOLOGICAL Hx Genitourinary Disorders: No - PSYCHIATRIC Hx Substance Use: No - SURGICAL HISTORY Hx Cholecystectomy: Yes - ANESTHESIA Hx Anesthesia: Yes Hx Anesthesia Reactions: No Meds Allergies/Adverse Reactions: Allergies Allergy/AdvReac Type Severity Reaction Status Date / Time No Known Allergies Allergy Verified 05/07/18 07:34 - Medications Medications: Current Medications Dextrose (Dextrose 50% Inj) 0 ml IV STAT PRN; Protocol PRN Reason: Hypoglycemia Protocol Dextrose (Glutose 15) 0 gm PO ONCE PRN; Protocol PRN Reason: Hypoglycemia Protocol Digoxin (Digoxin) 0.125 mg PO DAILY@1800 YI Glucagon (Glucagen Diagnostic Kit) 0 mg IM STAT PRN; Protocol PRN Reason: Hypoglycemia Protocol Dextrose (Dextrose 5% In Water 1000 Ml) 1,000 mls @ 0 mls/hr IV .Q0M PRN; Protocol PRN Reason: Hypoglycemia Protocol Sodium Chloride (Sodium Chloride 0.9%) 1,000 mls @ 100 mls/hr IV .Q10H COUNTS INCLUDE 234 BEDS AT THE [facility] Last Admin: 05/09/18 06:36 Dose: 100 mls/hr Insulin Human Regular (Novolin R) 0 unit SC ACHS COUNTS INCLUDE 234 BEDS AT THE [facility]; Protocol Last Admin: 05/09/18 11:50 Dose: Not Given Levetiracetam (Keppra) 500 mg PO BID COUNTS INCLUDE 234 BEDS AT THE [facility] Last Admin: 05/09/18 11:52 Dose: 500 mg Metoprolol Tartrate (Lopressor) 25 mg PO BID COUNTS INCLUDE 234 BEDS AT THE [facility] Last Admin: 05/09/18 11:52 Dose: 25 mg Mirtazapine (Remeron) 45 mg PO [facility] Last Admin: 05/08/18 21:05 Dose: 45 mg Nicotine (Nicoderm Cq) 1 patch TD DAILY PRN PRN Reason: nicotine withdrawal Rosuvastatin Calcium (Crestor) 5 mg PO [facility] Last Admin: 05/08/18 21:10 Dose: 5 mg Zolpidem Tartrate (Ambien) 5 mg PO 2000 COUNTS INCLUDE 234 BEDS AT THE [facility] Physical Exam - Constitutional Appears: Chronically Ill - Head Exam Head Exam: ATRAUMATIC, NORMAL INSPECTION, NORMOCEPHALIC - Eye Exam Eye Exam: EOMI, Normal appearance, PERRL Pupil Exam: NORMAL ACCOMODATION, PERRL - ENT Exam ENT Exam: Mucous Membranes Moist, Normal Exam - Neck Exam Neck exam: Positive for: Normal Inspection - Respiratory Exam Respiratory Exam: Clear to Auscultation Bilateral, NORMAL BREATHING PATTERN - Cardiovascular Exam Cardiovascular Exam: Tachycardia, REGULAR RHYTHM, +S1, +S2 - GI/Abdominal Exam GI & Abdominal Exam: Normal Bowel Sounds, Soft - Rectal Exam Rectal Exam: Deferred - Extremities Exam Additional comments: Left sided weakness - Back Exam Back exam: NORMAL INSPECTION - Neurological Exam Neurological exam: Alert, Altered - Psychiatric Exam Psychiatric exam: Anxious - Skin Skin Exam: Dry, Intact, Normal Color, Warm Results - Vital Signs Recent Vital Signs: Last Vital Signs Temp 97.9 F 05/09/18 10:50 Pulse 66 05/09/18 12:45 Resp 20 05/09/18 10:50 BP 144/75 05/09/18 10:50 Pulse Ox 97 05/09/18 10:50 - Labs Result Diagrams: 05/09/18 07:15 05/09/18 07:15 Labs: Laboratory Results - last 24 hr 05/07/18 05/08/18 05/08/18 16:48 13:17 16:32 WBC RBC Hgb Hct MCV MCH MCHC RDW Plt Count MPV Neut % (Auto) Lymph % (Auto) [place] % (Auto) Eos % (Auto) Baso % (Auto) Neut # (Auto) Lymph # (Auto) [place] # (Auto) Eos # (Auto) Baso # (Auto) PT INR Sodium Potassium Chloride Carbon Dioxide Anion Gap BUN Creatinine Est GFR ( Amer) Est GFR (Non-Af Amer) POC Glucose (mg/dL) 165 H 112 H Random Glucose Calcium Phosphorus Magnesium Total Bilirubin AST ALT Alkaline Phosphatase Total Protein Albumin Globulin Albumin/Globulin Ratio Urine Color Straw Urine Clarity Clear Urine pH 5.0 Ur Specific [place] 1.005 Urine Protein Negative Urine Glucose (UA) Normal Urine Ketones Negative Urine Blood Negative Urine Nitrate Negative Urine Bilirubin Negative Urine Urobilinogen Normal Ur Leukocyte Esterase Neg Urine WBC (Auto) < 1 Urine RBC (Auto) < 1 Urine Bacteria Rare 05/08/18 05/09/18 05/09/18 21:20 06:19 07:15 WBC 7.5 RBC 4.66 Hgb 11.6 Hct 36.9 MCV 79.0 L MCH 24.9 L MCHC 31.6 L RDW 16.1 H Plt Count 251 MPV 9.0 Neut % (Auto) 74.7 Lymph % (Auto) 16.5 L [place] % (Auto) 5.9 Eos % (Auto) 2.7 Baso % (Auto) 0.2 Neut # (Auto) 5.6 Lymph # (Auto) 1.2 [place] # (Auto) 0.4 Eos # (Auto) 0.2 Baso # (Auto) 0.0 PT INR Sodium Potassium Chloride Carbon Dioxide Anion Gap BUN Creatinine Est GFR ( Amer) Est GFR (Non-Af Amer) POC Glucose (mg/dL) 183 H 106 Random Glucose Calcium Phosphorus Magnesium Total Bilirubin AST ALT Alkaline Phosphatase Total Protein Albumin Globulin Albumin/Globulin Ratio Urine Color Urine Clarity Urine pH Ur Specific [place] Urine Protein Urine Glucose (UA) Urine Ketones Urine Blood Urine Nitrate Urine Bilirubin Urine Urobilinogen Ur Leukocyte Esterase Urine WBC (Auto) Urine RBC (Auto) Urine Bacteria 05/09/18 05/09/18 05/09/18 07:15 07:15 11:49 WBC RBC Hgb Hct MCV MCH MCHC RDW Plt Count MPV Neut % (Auto) Lymph % (Auto) [place] % (Auto) Eos % (Auto) Baso % (Auto) Neut # (Auto) Lymph # (Auto) [place] # (Auto) Eos # (Auto) Baso # (Auto) PT 38.7 H D INR 3.5 H* D Sodium 142 Potassium 3.7 Chloride 109 H Carbon Dioxide 27 Anion Gap 9 L BUN 6 L Creatinine 0.9 Est GFR ( Amer) > 60 Est GFR (Non-Af Amer) > 60 POC Glucose (mg/dL) 110 Random Glucose 115 H Calcium 8.4 L Phosphorus 3.6 Magnesium 1.6 Total Bilirubin 0.4 AST 21 ALT 20 Alkaline Phosphatase 77 Total Protein 5.6 L Albumin 3.1 L Globulin 2.5 Albumin/Globulin Ratio 1.2 Urine Color Urine Clarity Urine pH Ur Specific [place] Urine Protein Urine Glucose (UA) Urine Ketones Urine Blood Urine Nitrate Urine Bilirubin Urine Urobilinogen Ur Leukocyte Esterase Urine WBC (Auto) Urine RBC (Auto) Urine Bacteria Assessment & Plan - Assessment and Plan (Free Text) Assessment: Palliative consult There was no Advance directive on chart, PPS 10% I reviewed all Medical records, diagnostic studies, examined patient in the bed, discussed goals of care with daughter Patient is alert, altered, unable to fallow, eyes closed, looking tired, only [place] speaking. Left sided weakness. No facial twitching noted. Patient seen by Doctor Little, neuro, and PT/OT recommended. Skin dry, pale, intact, poor skin turgor. Diminished breath sounds, no cough, o2Sat 95 % RA Abdomen soft, flat, incontinent, no BM since admission. Active ROM to right arm and leg only. BP 150/76, HR 96, afebrile. Goals of care discussed with patient's daughter Angy [phone] at bed side. Translation provided. I reviewed patient's clinical condition. Daughter understands that her mother had another, small CVA. She feels that her mother was under great deal of stress due to her son in law passing away just few days ago. I elicited daughter's expectations and concerns. She cried and admitted being scarred that her mother may .. I reassured her about all steps taken to support her mother's condition. End of life care discussed. Daughter was very clear that she would not want her mother to suffer if meaningfull recovery was not expected. if patient loses ability toswallow, daughter does not want her to get feeding tube. if heart stops or breathing stops, arely does not want CPR nor MV assistance to prolong her life. She wants hr mother to peacefully if al;l ordinary measures fail. POLST introduced. Daughter signed DNR/DNI. I shared this with nursing and Doctor Val. Impression * Left sided weakness * S/P CVA * Confusion * AMS * High risk of bled, high INR * Limited mobility * Daughter concerned with patient's comfort * Daughter advocates for quality of life and natural Suggestion * Promote safety * Assist with ADLs * Continue Cumadin when therapeutic * PRECIOUS planing for PT/OT * Agree with DNR/DNi Palliative care will sign off at this point. Advance care planing 60 min.
--- NOTE | 2018-05-09 15:02 | PCM.STROKE ---
Interval History Stroke Date: 05/06/18 No other interval changes in current, PMHx, FHx, SocHx, ROS: other than on note by: (initial neuro h&p) - Treatment DVT Prophylaxis: Sequential compression device in place bilaterally Statin: Rosuvastatin - Education Written Stroke Education provided regarding: personal risk factors, stroke warning sign/symptoms, how to activate emergency medical services, need to follow up after discharge Hx Atrial Fibrillation: Yes - Therapy Notes Physical therapy notes date reviewed: 05/09/18 I have reviewed care of the patient with: Dr. Best NIHSS Stroke Scale - Date/Time Evaluation Performed Date Performed: 05/09/18 Time Performed: 16:43 When Was NIHSS Performed: Re-evaluation - How Severe is the Stroke Level of Consciousness: 0=Alert LOC to Questions: 0=Both comments correct LOC to commands: 0=Obeys both correctly Best Gaze: 0=Normal Visual: 0=No visual loss Facial: 0=Normal Motor Arm - Left: 1=Drift noted before 10 sec Motor Arm - Right: 0=No drift Motor Leg - Left: 0=No drift Motor Leg - Right: 0=No drift Limb Ataxia: 0=Absent Sensory: 1=Mild to moderate loss Best Language: 0=No aphasia Dysarthia: 1=Mild to moderate slurring Extinction & Inattention (Neglect): 0=Normal, no object Score: 3 Exam - Vital Sign Vital Signs: Temp Pulse Resp BP Pulse Ox 97.9 F 66 20 144/75 97 05/09/18 10:50 05/09/18 12:45 05/09/18 10:50 05/09/18 10:50 05/09/18 10:50 Constitutional: No distress, Normal appearing Ophthalmoscopic: absent: papilledema, hemorrhage Right Pupil: Reactive Right Pupil Size (in mm): 3 Left Pupil: Reactive Left Pupil Size (in mm): 3 Cardiovascular: Other (afib) Mental Status: Normal: Orientation, Attention, Language (fluid; slight slurring). Abnormal: Memory (forgetful) Cranial Nerve: Normal: Visual Khan, Extraocular movement intact, Facial Sensation, Facial Strength, Hearing, Palate/Tongue Movement Motor: Tone, Bulk Neuro motor strength exam: Left Upper Extremity: 4 (glassie 4/5), Right Upper Extremity: 5 (glassie 5/5), Left Lower Extremity: 5, Right Lower Extremity: 5 Sensation: Intact to pin, Vibration DTR: Patellar Left: 2+, Patellar Right: 2+ Flexor Plantar Reflex: Normal Coordination: Finger/nose, Heel/Chase Vascular Risk: Hypertension, Lipids, Atrial Fibrillation - Data reviewed Laboratory results: 05/09/18 07:15 05/09/18 07:15 Triglycerides 225 mg/dL (0-149) H 05/07/18 07:42 Cholesterol 138 mg/dL (0-199) 05/07/18 07:42 LDL Cholesterol Direct 79 mg/dL (0-129) 05/07/18 07:42 HDL Cholesterol 29 mg/dL (30-70) L 05/07/18 07:42 Hemoglobin A1c 6.8 % (4.2-6.5) H 05/07/18 07:42 Assessment and Plan (1) CVA (cerebral vascular accident) Assessment & Plan: Imaging reviewed: -CT Head (05/08/18): No intracranial hemorrhage. No evidence of acute infarct. Probable remote infarct right temporoparietal. -CTA Head and Neck (05/07/18): No evidence of occlusion dissection or significant stenosis despite some mild calcified plaque changes at several locations of the of both carotid circulations as detailed above. Enlarged heterogeneous nodular appearing right lobe thyroid gland for which thyroid ultrasound follow-up is recommended. -MRI Brain (05/07/18): No acute intracranial abnormality. Cystic encephalomalacia and gliosis in the right posterior temporal lobe, sequela of remote MCA territory infarction. Moderate chronic microangiopathic changes and mild age-related global parenchymal volume loss. -CT head (05/07/18): No evidence of acute infarct. No intracranial mass or hemorrhage. Chronic paranasal sinusitis. 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 -Continue Statin. -Daily INR---today 3.5; Warfarin still on hold. Consider restarting tomorrow depending on INR. -Continue PT/OT/ST. -Notify neuro of any acute changes. Status: Acute (2) Seizure Assessment & Plan: Imaging reviewed: -CT Head (05/08/18): No intracranial hemorrhage. No evidence of acute infarct. Probable remote infarct right temporoparietal. -CTA Head and Neck (05/07/18): No evidence of occlusion dissection or significant stenosis despite some mild calcified plaque changes at several locations of the of both carotid circulations as detailed above. Enlarged heterogeneous nodular appearing right lobe thyroid gland for which thyroid ultrasound follow-up is recommended. -MRI Brain (05/07/18): No acute intracranial abnormality. Cystic encephalomalacia and gliosis in the right posterior temporal lobe, sequela of remote MCA territory infarction. Moderate chronic microangiopathic changes and mild age-related global parenchymal volume loss. -CT head (05/07/18): No evidence of acute infarct. No intracranial mass or hemorrhage. Chronic paranasal sinusitis. 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 -Continue Keppra 500 mg PO BID. May be increased to 750 mg PO BID if seizures return. -EEG done, report pending. -Discuss above plan with family; they are in agreement. -Notify neuro of any acute changes. Juany Park DNP, [employer] O[employer]ATOR Discussed with Dr. Best Status: Acute
[2018-05-09] MEDS: Lidocaine 5% Patch TD SCH (17:08)
[2018-05-09] MEDS: Digoxin 125 mcg (0.125 mg) Tab PO SCH (17:30)
--- NOTE | 2018-05-10 01:35 | CARD ---
APPROVED REPORT Date of service: 05/07/2018 EKG Measurement Heart [id number] <Conclusion> Atrial fibrillation Low voltage QRS Cannot rule out Anterior infarct, age undetermined Abnormal ECG
--- NOTE | 2018-05-10 07:03 | CP.PCM.PN ---
Subjective - Date & Time of Evaluation Date of Evaluation: 05/10/18 Time of Evaluation: 07:02 - Subjective Subjective: PGY-1 Toya Bateman D.O. Medicine progress note for Dr. Neal's service: Patient was seen and examined this morning. Family is at bedside; they report that patient had a much better night. She is sitting up in a chair eating- she is feeding herself, making good eye contact. Patient says she feels good. She is oriented. Family reports she has been walking with PT. Objective - Vital Signs/Intake and Output Vital Signs (last 24 hours): Temp Pulse Resp BP Pulse Ox 98.7 F 91 H 18 146/77 95 05/09/18 23:33 05/10/18 03:02 05/09/18 23:33 05/09/18 23:33 05/09/18 23:33 - Medications Medications: Current Medications Dextrose (Dextrose 50% Inj) 0 ml IV STAT PRN; Protocol PRN Reason: Hypoglycemia Protocol Dextrose (Glutose 15) 0 gm PO ONCE PRN; Protocol PRN Reason: Hypoglycemia Protocol Digoxin (Digoxin) 0.125 mg PO DAILY@1800 YI Last Admin: 05/09/18 17:30 Dose: 0.125 mg Glucagon (Glucagen Diagnostic Kit) 0 mg IM STAT PRN; Protocol PRN Reason: Hypoglycemia Protocol Dextrose (Dextrose 5% In Water 1000 Ml) 1,000 mls @ 0 mls/hr IV .Q0M PRN; Protocol PRN Reason: Hypoglycemia Protocol Sodium Chloride (Sodium Chloride 0.9%) 1,000 mls @ 100 mls/hr IV .Q10H [facility] Last Admin: 05/09/18 16:29 Dose: Not Given Insulin Human Regular (Novolin R) 0 unit SC ACHS YI; Protocol Last Admin: 05/09/18 21:38 Dose: Not Given Levetiracetam (Keppra) 500 mg PO BID [facility] Last Admin: 05/09/18 17:08 Dose: 500 mg Lidocaine (Lidoderm) 1 ea TD DAILY [facility] Last Admin: 05/09/18 17:08 Dose: 1 ea Metoprolol Tartrate (Lopressor) 25 mg PO BID [facility] Last Admin: 05/09/18 17:09 Dose: 25 mg Mirtazapine (Remeron) 45 mg PO HS YI Last Admin: 05/09/18 21:29 Dose: 45 mg Nicotine (Nicoderm Cq) 1 patch TD DAILY PRN PRN Reason: nicotine withdrawal Rosuvastatin Calcium (Crestor) 5 mg PO [facility] Last Admin: 05/09/18 21:29 Dose: 5 mg Zolpidem Tartrate (Ambien) 5 mg PO 1999 [facility] Last Admin: 05/09/18 21:29 Dose: 5 mg - Labs Labs: 05/09/18 07:15 05/09/18 07:15 PT 38.7 SECONDS (9.7-12.2) H D 05/09/18 07:15 INR 3.5 H* D 05/09/18 07:15 APTT 76 SECONDS (21-34) H 05/07/18 07:42 - Additional Findings Additional findings: - Constitutional Appears: No Acute Distress - Head Exam Head Exam: ATRAUMATIC, NORMAL INSPECTION - Eye Exam Eye Exam: EOMI, Normal appearance - ENT Exam ENT Exam: Mucous Membranes Moist - Neck Exam Neck Exam: Normal Inspection - Respiratory Exam Respiratory Exam: Clear to Auscultation Bilateral, NORMAL BREATHING PATTERN - Cardiovascular Exam Cardiovascular Exam: RRR, +S1, +S2 - GI/Abdominal Exam GI & Abdominal Exam: Soft. absent: Tenderness - Extremities Exam Extremities Exam: Normal Inspection - Back Exam Back Exam: NORMAL INSPECTION - Neurological Exam Neurological Exam: Alert, Awake, Oriented, CN II-XII Intact Neuro motor strength exam: Left Upper Extremity: 5, Right Upper Extremity: 5, Left Lower Extremity: 5, Right Lower Extremity: 5 - Skin Skin Exam: Dry, Normal Color, Warm Assessment and Plan - Assessment and Plan (Free Text) Assessment: Patient is an 82 yo female with Afib (on warfarin), HTN, HLD, T2DM, h/o CVA, and h/o breast cancer who presents with l-sided facial twitching and slurred speech. Code stroke called. Symptoms resolved. CT head and CTA head/neck negative for acute stroke. MRI brain negative. INR supratherapeutic on admission. Echo showed severe sclerotic aortic valve. EEG pending. Patient was experiencing delirium; this has improved since starting Ambien. Patient is now working with PT. She does not have insurance, so she cannot go to [facility]. She will be ready for discharge when INR therapeutic. Plan: Transient ischemic attack, acute - Code stroke- NIH 7 on admission - Monitor on telemetry- patient refusing - Neuro checks - Seizure precautions - Aspiration precautions - Fall precautions - CT head: no acute infarct or hemorrhage, no mass, old right temporoparietal - Repeat negative - CTA head/neck: no acute pathology - MRI brain: No acute intracranial abnormality. Cystic encephalomalacia and gliosis in the right posterior temporal lobe, sequela of remote MCA territory infarction. Moderate chronic microangiopathic changes and mild age-related global parenchymal volume loss. - CXR: no active disease - UA negative - Echo: normal EF, mild LVH, severely sclerotic AV - EEG pending - Passed bedside swallow eval- dysphagia diet - Discontinue IVF - Replete Mg PRN - Keppra 500 mg PO BID - Neurology consulted (Little) - PT/OT/ST Supratherapeutic INR, acute - PT/INR 82.6/7.5 on admission--> INR 3.5---> 1.4 - Vit K 5 mg PO x1 - Start Lovenox 60 mg SC Q12H - Warfarin 5 mg PO tonight - Recheck INR in AM Delirium, acute, improving- 2/2 to age/dementia, hospitalization - Encourage orienting patient and keeping her awake during the day - Ambien 5 mg PO @ 8PM - Avoid long-acting sedatives Atrial fibrillation, chronic - Monitor on telemetry- patient refusing tele monitor - Restart warfarin - Digoxin 0.125 mg PO daily - Dig level low (0.5) - Metoprolol 25 mg PO BID Type 2 diabetes mellitus, chronic - A1c 6.8 - Accuchecks ACHS - BG range 100-180 - Hypoglycemic protocol - ISS low Hypertension, chronic - Vitals Q6H - Metoprolol 25 mg PO BID Hyperlipidemia, chronic - TG 225, chol 138, LDL 79, HDL 29 (not fasting) - Crestor 5 mg PO QHS Poor appetite - Remeron 45 mg PO QHS (home med) Dementia, chronic, mild - Palliative consulted- patient now DNR/DNI Ppx: VTE: SCDs, restart warfarin GI: not indicated Diet: dysphagia (pureed/thin liquids) Case discussed with attending, Dr. Neal.
[2018-05-10 07:39] LABS: INR 1.4; PROTHROMBIN TIME 15.1 SECONDS (9.7-12.2)
[2018-05-10 07:56] LABS: ALB/GLOB RATIO 1.2 (1.0-2.1); ALBUMIN 2.9 g/dL (3.5-5.0); ALT/SGPT 13 U/L (9-52); AST/SGOT 22 U/L (14-36); BLOOD UREA NITROGEN 6 mg/dL (7-17); GFR NON-AFRICAN AMERICAN > 60
[2018-05-10 07:59] LABS: BASO % 0.3 % (0.0-2.0); EOS # 0.3 K/uL (0.0-0.7); EOS % 3.7 % (0.0-4.0); LYMPH # 1.4 K/uL (1.0-4.3); LYMPH % 18.2 % (20.0-40.0); MEAN CORPUSCULAR HGB CONC 31.7 g/dL (33.0-37.0); MEAN PLATELET VOLUME 8.7 fL (7.2-11.7); MONO # 0.4 K/uL (0.0-0.8); MONO % 5.9 % (0.0-10.0); NEUT # 5.4 K/uL (1.8-7.0); NEUT % 71.9 % (50.0-75.0); NRBC % 0.1 % (0.0-2.0); RBC 4.4 Mil/uL (3.80-5.20); RED CELL DISTRIBUTION WIDTH 16.3 % (11.5-14.5); WHITE BLOOD COUNT 7.5 K/uL (4.8-10.8)
[2018-05-10] MEDS: Lidocaine 5% Patch TD SCH (09:45)
[2018-05-10] MEDS: (Novolin R) Insulin Human Regular 100 units/ml vial SC SCH ×4 (09:56→22:09)
[2018-05-10] MEDS: Enoxaparin 60 mg Syringe SC SCH ×2 (11:48→23:47)
[2018-05-10] MEDS: Magnesium Sulfate 1 gm in D5W 1 GM/100 ML BAG IVPB SCH (11:48)
--- NOTE | 2018-05-10 15:55 | PCM.STROKE ---
Interval History Stroke Date: 05/06/18 - Treatment DVT Prophylaxis: Sequential compression device in place bilaterally Anticoagulation: Warfarin, Other (lovenox to bridge until coumadin is therapeutic) Statin: Rosuvastatin - Education Written Stroke Education provided regarding: personal risk factors, stroke warning sign/symptoms, how to activate emergency medical services, need to follow up after discharge Hx Atrial Fibrillation: Yes - Therapy Notes Physical therapy notes date reviewed: 05/10/18 I have reviewed care of the patient with: Dr. Best NIHSS Stroke Scale - Date/Time Evaluation Performed Date Performed: 05/10/18 Time Performed: 15:51 When Was NIHSS Performed: Re-evaluation - How Severe is the Stroke Level of Consciousness: 0=Alert LOC to Questions: 0=Both comments correct LOC to commands: 0=Obeys both correctly Best Gaze: 0=Normal Visual: 0=No visual loss Facial: 0=Normal Motor Arm - Left: 0=No drift Motor Arm - Right: 0=No drift Motor Leg - Left: 0=No drift Motor Leg - Right: 0=No drift Limb Ataxia: 0=Absent Sensory: 0=Normal Best Language: 0=No aphasia Dysarthia: 0=Normal articulation Extinction & Inattention (Neglect): 0=Normal, no object Score: 0 Exam - Vital Sign Vital Signs: Temp Pulse Resp BP Pulse Ox 97.9 F 81 20 120/62 94 L 05/10/18 07:00 05/10/18 12:43 05/10/18 07:00 05/10/18 07:00 05/10/18 07:00 Constitutional: No distress, Normal appearing Ophthalmoscopic: absent: papilledema, hemorrhage Right Pupil: Reactive Right Pupil Size (in mm): 2 Left Pupil: Reactive Left Pupil Size (in mm): 2 Cardiovascular: Other (afib) Mental Status: Normal: Orientation, Attention, Language, Fund of Knowledge. Abnormal: Memory (forgetful) Cranial Nerve: Normal: Visual Khan, Extraocular movement intact, Facial Sensation, Facial Strength, Hearing, Palate/Tongue Movement, Shoulder Strength Motor: Tone, Bulk Neuro motor strength exam: Left Upper Extremity: 5 (social services 5/5), Right Upper Extremity: 5 (social services 5/5), Left Lower Extremity: 4, Right Lower Extremity: 4 Sensation: Intact to pin DTR: Patellar Left: 1+, Patellar Right: 1+ Flexor Plantar Reflex: Normal Coordination: Finger/nose Vascular Risk: Hypertension, Lipids, Atrial Fibrillation - Data reviewed Laboratory results: 05/10/18 07:22 05/10/18 07:22 Triglycerides 225 mg/dL (0-149) H 05/07/18 07:42 Cholesterol 138 mg/dL (0-199) 05/07/18 07:42 LDL Cholesterol Direct 79 mg/dL (0-129) 05/07/18 07:42 HDL Cholesterol 29 mg/dL (30-70) L 05/07/18 07:42 Hemoglobin A1c 6.8 % (4.2-6.5) H 05/07/18 07:42 Assessment and Plan (1) CVA (cerebral vascular accident) Assessment & Plan: Imaging reviewed: -CT Head (05/08/18): No intracranial hemorrhage. No evidence of acute infarct. Probable remote infarct right temporoparietal. -CTA Head and Neck (05/07/18): No evidence of occlusion dissection or significant stenosis despite some mild calcified plaque changes at several locations of the of both carotid circulations as detailed above. Enlarged heterogeneous nodular appearing right lobe thyroid gland for which thyroid ultrasound follow-up is recommended. -MRI Brain (05/07/18): No acute intracranial abnormality. Cystic encephalomalacia and gliosis in the right posterior temporal lobe, sequela of remote MCA territory infarction. Moderate chronic microangiopathic changes and mild age-related global parenchymal volume loss. -CT head (05/07/18): No evidence of acute infarct. No intracranial mass or hem orrhage. Chronic paranasal sinusitis. 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 -Continue Statin. -Daily INR---today 1.4; Warfarin has been restarted today with Lovenox to bridge--ordered by primary team. Maintain INR between 2-3. -Continue PT/OT/ST. -Notify neuro of any acute changes. Status: Acute (2) Seizure Assessment & Plan: Imaging reviewed: -CT Head (05/08/18): No intracranial hemorrhage. No evidence of acute infarct. Probable remote infarct right temporoparietal. -CTA Head and Neck (05/07/18): No evidence of occlusion dissection or significant stenosis despite some mild calcified plaque changes at several locations of the of both carotid circulations as detailed above. Enlarged heterogeneous nodular appearing right lobe thyroid gland for which thyroid ultrasound follow-up is recommended. -MRI Brain (05/07/18): No acute intracranial abnormality. Cystic encephalomalacia and gliosis in the right posterior temporal lobe, sequela of remote MCA territory infarction. Moderate chronic microangiopathic changes and mild age-related global parenchymal volume loss. -CT head (05/07/18): No evidence of acute infarct. No intracranial mass or hemorrhage. Chronic paranasal sinusitis. 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 -EEG done, report pending---will f/u. -Continue Keppra 500 mg PO BID. May be increased to 750 mg PO BID if seizures return. -Discuss above plan with family; they are in agreement. -Notify neuro of any acute changes. [place]any [place], WAGNER, [employer] Discussed with Dr. Best Status: Acute
[2018-05-10] MEDS: Digoxin 125 mcg (0.125 mg) Tab PO SCH (18:09)
[2018-05-11] MEDS: (Novolin R) Insulin Human Regular 100 units/ml vial SC SCH ×4 (07:17→22:08)
[2018-05-11 08:41] LABS: BASO % 0.2 % (0.0-2.0); EOS # 0.2 K/uL (0.0-0.7); EOS % 3.8 % (0.0-4.0); HEMOGLOBIN 10.4 g/dL (11.0-16.0); LYMPH # 1.4 K/uL (1.0-4.3); LYMPH % 21.1 % (20.0-40.0); MEAN CELL VOLUME 78.6 fL (81.0-99.0); MEAN CORPUSCULAR HEMOGLOBIN 24.6 pg (27.0-31.0); MEAN CORPUSCULAR HGB CONC 31.4 g/dL (33.0-37.0); MEAN PLATELET VOLUME 8.6 fL (7.2-11.7); MONO # 0.4 K/uL (0.0-0.8); MONO % 6.2 % (0.0-10.0); NEUT # 4.4 K/uL (1.8-7.0); NEUT % 68.7 % (50.0-75.0); RBC 4.24 Mil/uL (3.80-5.20); RED CELL DISTRIBUTION WIDTH 16.1 % (11.5-14.5); WHITE BLOOD COUNT 6.5 K/uL (4.8-10.8)
[2018-05-11 08:43] LABS: INR 1.3; PROTHROMBIN TIME 14.1 SECONDS (9.7-12.2)
[2018-05-11 08:54] LABS: ALB/GLOB RATIO 1.2 (1.0-2.1); ALBUMIN 2.9 g/dL (3.5-5.0); ALT/SGPT 24 U/L (9-52); AST/SGOT 20 U/L (14-36); BLOOD UREA NITROGEN 6 mg/dL (7-17); CALCIUM 8.4 mg/dl (8.6-10.4); GFR NON-AFRICAN AMERICAN 53
--- NOTE | 2018-05-11 09:14 | CP.PCM.PN ---
Subjective - Date & Time of Evaluation Date of Evaluation: 05/11/18 Time of Evaluation: 09:14 - Subjective Subjective: PGY-1 Toya Bateman D.O. Medicine progress note for Dr. Neal's service: Patient was seen and examined this morning. Family is at bedside. They report she had another good night and slept well. Patient has no acute complaints. She is alert and oriented. She is continuing to work with PT to near her baseline. Family said she is improving. Objective - Vital Signs/Intake and Output Vital Signs (last 24 hours): Temp Pulse Resp BP Pulse Ox 98.2 F 89 18 144/83 96 05/11/18 07:10 05/11/18 07:10 05/11/18 07:10 05/11/18 07:10 05/11/18 07:10 - Medications Medications: Current Medications Dextrose (Dextrose 50% Inj) 0 ml IV STAT PRN; Protocol PRN Reason: Hypoglycemia Protocol Dextrose (Glutose 15) 0 gm PO ONCE PRN; Protocol PRN Reason: Hypoglycemia Protocol Digoxin (Digoxin) 0.125 mg PO DAILY@1800 [facility] Last Admin: 05/10/18 18:09 Dose: 0.125 mg Enoxaparin Sodium (Lovenox) 60 mg SC Q12H [facility] Last Admin: 05/10/18 23:47 Dose: 60 mg Glucagon (Glucagen Diagnostic Kit) 0 mg IM STAT PRN; Protocol PRN Reason: Hypoglycemia Protocol Dextrose (Dextrose 5% In Water 1000 Ml) 1,000 mls @ 0 mls/hr IV .Q0M PRN; Protocol PRN Reason: Hypoglycemia Protocol Insulin Human Regular (Novolin R) 0 unit SC ACHS [facility]; Protocol Last Admin: 05/11/18 07:17 Dose: Not Given Levetiracetam (Keppra) 500 mg PO BID [facility] Last Admin: 05/10/18 18:09 Dose: 500 mg Lidocaine (Lidoderm) 1 ea TD DAILY [facility] Last Admin: 05/10/18 09:45 Dose: 1 ea Metoprolol Tartrate (Lopressor) 25 mg PO BID [facility] Last Admin: 05/10/18 18:09 Dose: 25 mg Mirtazapine (Remeron) 45 mg PO HS [facility] Last Admin: 05/10/18 22:13 Dose: 45 mg Nicotine (Nicoderm Cq) 1 patch TD DAILY PRN PRN Reason: nicotine withdrawal Rosuvastatin Calcium (Crestor) 5 mg PO [facility] Last Admin: 05/10/18 22:13 Dose: 5 mg Zolpidem Tartrate (Ambien) 5 mg PO 1999 [facility] Last Admin: 05/10/18 22:13 Dose: 5 mg - Labs Labs: 05/11/18 08:26 05/11/18 08:26 PT 14.1 SECONDS (9.7-12.2) H 05/11/18 08:26 INR 1.3 05/11/18 08:26 APTT 76 SECONDS (21-34) H 05/07/18 07:42 - Additional Findings Additional findings: - Constitutional Appears: No Acute Distress - Head Exam Head Exam: ATRAUMATIC, NORMAL INSPECTION - Eye Exam Eye Exam: EOMI, Normal appearance - ENT Exam ENT Exam: Mucous Membranes Moist - Neck Exam Neck Exam: Normal Inspection - Respiratory Exam Respiratory Exam: Clear to Auscultation Bilateral, NORMAL BREATHING PATTERN - Cardiovascular Exam Cardiovascular Exam: RRR, +S1, +S2 - GI/Abdominal Exam GI & Abdominal Exam: Soft. absent: Tenderness - Extremities Exam Extremities Exam: Normal Inspection - Back Exam Back Exam: NORMAL INSPECTION - Neurological Exam Neurological Exam: Alert, Awake, Oriented, CN II-XII Intact Neuro motor strength exam: Left Upper Extremity: 5, Right Upper Extremity: 5, Left Lower Extremity: 5, Right Lower Extremity: 5 - Skin Skin Exam: Dry, Normal Color, Warm Assessment and Plan - Assessment and Plan (Free Text) Assessment: Patient is an 82 yo female with Afib (on warfarin), HTN, HLD, T2DM, h/o CVA, and h/o breast cancer who presents with l-sided facial twitching and slurred speech. Code stroke called. Symptoms resolved. CT head and CTA head/neck negative for acute stroke. MRI brain negative. INR supratherapeutic on admission. Echo showed severe sclerotic aortic valve. EEG pending. Patient was experiencing delirium; this has improved since starting Ambien. Patient is now working with PT. She does not have insurance, so she cannot go to [facility]. She will be ready for discharge when INR therapeutic as it is now subtherapeutic. Plan: Transient ischemic attack, acute, resolved - Code stroke- NIH 7 on admission - Neuro checks - Seizure precautions - Aspiration precautions - Fall precautions - CT head: no acute infarct or hemorrhage, no mass, old right temporoparietal - Repeat negative - CTA head/neck: no acute pathology - MRI brain: No acute intracranial abnormality. Cystic encephalomalacia and gliosis in the right posterior temporal lobe, sequela of remote MCA territory infarction. Moderate chronic microangiopathic changes and mild age-related global parenchymal volume loss. - CXR: no active disease - UA negative - Echo: normal EF, mild LVH, severely sclerotic AV - EEG reading pending - Passed bedside swallow eval- dysphagia diet - Replete Mg PRN - Keppra 500 mg PO BID - Neurology consulted (Little) - PT/OT/ST- rec home PT vs TCU Supratherapeutic INR, acute- currently subtherapeutic - PT/INR 82.6/7.5 on admission--> INR 3.5---> 1.3 - Vit K 5 mg PO x1 - Lovenox 60 mg SC Q12H - Warfarin restarted 05/10- Warfarin 7 mg PO tonight - Recheck INR in AM Delirium, acute, improving- 2/2 to age/dementia, hospitalization - Encourage orienting patient and keeping her awake during the day - Ambien 5 mg PO @ 8PM - Avoid long-acting sedatives Atrial fibrillation, chronic - No events seen on tele- discontinued as patient refusing - Lovenox bridge to Warfarin - Digoxin 0.125 mg PO daily - Dig level low (0.5) - Metoprolol 25 mg PO BID Type 2 diabetes mellitus, chronic - A1c 6.8 - Accuchecks ACHS - BG range 100-190 - Hypoglycemic protocol - ISS low Hypertension, chronic, well-controlled - Vitals Q6H - Metoprolol 25 mg PO BID Hyperlipidemia, chronic - TG 225, chol 138, LDL 79, HDL 29 (not fasting) - Crestor 5 mg PO QHS Poor appetite and sleep, improving - Remeron 45 mg PO QHS (home med) Dementia, chronic, mild - Palliative consulted- patient now DNR/DNI Ppx: VTE: SCDs, Lovenox 60 mg SC Q12H bridge to Warfarin GI: not indicated Diet: Dysphagia (pureed/thin liquids) Case discussed with attending, Dr. Neal.
[2018-05-11] MEDS: Lidocaine 5% Patch TD SCH (09:50)
--- NOTE | 2018-05-11 11:16 | PCM.STROKE ---
Interval History - Treatment DVT Prophylaxis: Sequential compression device in place bilaterally Anticoagulation: Warfarin, Other (Lovenox bridge until Coumadin is therapeutic) Statin: Rosuvastatin - Education Written Stroke Education provided regarding: personal risk factors, stroke warning sign/symptoms, how to activate emergency medical services, need to follow up after discharge Hx Atrial Fibrillation: Yes - Therapy Notes Physical therapy notes date reviewed: 05/11/18 I have reviewed care of the patient with: Dr. Best NIHSS Stroke Scale - Date/Time Evaluation Performed Date Performed: 05/10/18 Time Performed: 10:15 When Was NIHSS Performed: Re-evaluation - How Severe is the Stroke Level of Consciousness: 0=Alert LOC to Questions: 0=Both comments correct LOC to commands: 0=Obeys both correctly Best Gaze: 0=Normal Visual: 0=No visual loss Facial: 0=Normal Motor Arm - Left: 0=No drift Motor Arm - Right: 0=No drift Motor Leg - Left: 0=No drift Motor Leg - Right: 0=No drift Limb Ataxia: 0=Absent Sensory: 0=Normal Best Language: 0=No aphasia Dysarthia: 0=Normal articulation Extinction & Inattention (Neglect): 0=Normal, no object Score: 0 Exam - Vital Sign Vital Signs: Temp Pulse Resp BP Pulse Ox 98.2 F 89 18 144/83 96 05/11/18 07:10 05/11/18 07:10 05/11/18 07:10 05/11/18 07:10 05/11/18 07:10 Constitutional: No distress, Normal appearing Ophthalmoscopic: absent: hemorrhage Right Pupil: Reactive Right Pupil Size (in mm): 2 Left Pupil: Reactive Left Pupil Size (in mm): 2 Cardiovascular: Other (afib) Mental Status: Normal: Orientation, Attention, Language, Fund of Knowledge. Abnormal: Memory (forgetful) Cranial Nerve: Normal: Visual Khan, Extraocular movement intact, Facial Sensation, Facial Strength, Hearing, Palate/Tongue Movement, Shoulder Strength Motor: Tone, Bulk Neuro motor strength exam: Left Upper Extremity: 5 (plasterer journeyman 5/5), Right Upper Extremity: 5 (plasterer journeyman 5/5), Left Lower Extremity: 4, Right Lower Extremity: 4 Sensation: Intact to pin DTR: Brachioradialis Left: 1+, Brachioradialis Right: 1+, Patellar Left: 1+, Patellar Right: 1+ Flexor Plantar Reflex: Normal Coordination: Finger/nose Vascular Risk: Hypertension, Lipids, Atrial Fibrillation - Data reviewed Laboratory results: 05/11/18 08:26 05/11/18 08:26 Triglycerides 225 mg/dL (0-149) H 05/07/18 07:42 Cholesterol 138 mg/dL (0-199) 05/07/18 07:42 LDL Cholesterol Direct 79 mg/dL (0-129) 05/07/18 07:42 HDL Cholesterol 29 mg/dL (30-70) L 05/07/18 07:42 Hemoglobin A1c 6.8 % (4.2-6.5) H 05/07/18 07:42 Assessment and Plan (1) CVA (cerebral vascular accident) Assessment & Plan: Imaging reviewed: -CT Head (05/08/18): No intracranial hemorrhage. No evidence of acute infarct. Probable remote infarct right temporoparietal. -CTA Head and Neck (05/07/18): No evidence of occlusion dissection or significant stenosis despite some mild calcified plaque changes at several locations of the of both carotid circulations as detailed above. Enlarged heterogeneous nodular appearing right lobe thyroid gland for which thyroid ultrasound follow-up is recommended. -MRI Brain (05/07/18): No acute intracranial abnormality. Cystic encephalomalacia and gliosis in the right posterior temporal lobe, sequela of remote MCA territory infarction. Moderate chronic microangiopathic changes and mild age-related global parenchymal volume loss. -CT head (05/07/18): No evidence of acute infarct. No intracranial mass or he morrhage. Chronic paranasal sinusitis. 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 -Continue Statin. -Daily INR---today 1.3; Warfarin has been restarted yesterday with Lovenox to bridge--ordered by primary team. Maintain INR between 2-3. -Continue PT/OT/ST. -Notify neuro of any acute changes. Status: Acute (2) Seizure Assessment & Plan: Imaging reviewed: -CT Head (05/08/18): No intracranial hemorrhage. No evidence of acute infarct. Probable remote infarct right temporoparietal. -CTA Head and Neck (05/07/18): No evidence of occlusion dissection or significant stenosis despite some mild calcified plaque changes at several locations of the of both carotid circulations as detailed above. Enlarged heterogeneous nodular appearing right lobe thyroid gland for which thyroid ultrasound follow-up is recommended. -MRI Brain (05/07/18): No acute intracranial abnormality. Cystic encephalomalacia and gliosis in the right posterior temporal lobe, sequela of remote MCA territory infarction. Moderate chronic microangiopathic changes and mild age-related global parenchymal volume loss. -CT head (05/07/18): No evidence of acute infarct. No intracranial mass or hemorrhage. Chronic paranasal sinusitis. 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 -EEG done, report pending---prelim read shows slowing with no seizure activity -Continue Keppra 500 mg PO BID for seizure prophylaxis. -Discuss above plan with family; they are in agreement. -Patient is clear for discharge from a Neuro perspective. She can follow up with Dr. Little as an outpatient. -Notify neuro of any acute changes. d/w Dr. Nasir Roman PGY-1 Status: Acute
[2018-05-11] MEDS: Enoxaparin 60 mg Syringe SC SCH ×2 (13:05→23:50)
[2018-05-11 17:02] VITALS: RESP 20
[2018-05-11] MEDS: Digoxin 125 mcg (0.125 mg) Tab PO SCH (17:44)
[2018-05-11 17:45] VITALS: PULSE 86
[2018-05-11 23:40] VITALS: TEMP 98
--- NOTE | 2018-05-12 07:04 | CP.PCM.PN ---
Subjective - Date & Time of Evaluation Date of Evaluation: 05/12/18 Objective - Vital Signs/Intake and Output Vital Signs (last 24 hours): Temp Pulse Resp BP Pulse Ox 98.0 F 99 H 20 145/82 96 05/11/18 23:00 05/11/18 23:00 05/11/18 23:00 05/11/18 23:00 05/11/18 23:00 - Medications Medications: Current Medications Dextrose (Dextrose 50% Inj) 0 ml IV STAT PRN; Protocol PRN Reason: Hypoglycemia Protocol Dextrose (Glutose 15) 0 gm PO ONCE PRN; Protocol PRN Reason: Hypoglycemia Protocol Digoxin (Digoxin) 0.125 mg PO DAILY@1800 [facility] Last Admin: 05/11/18 17:44 Dose: 0.125 mg Enoxaparin Sodium (Lovenox) 60 mg SC Q12H [facility] Last Admin: 05/11/18 23:50 Dose: 60 mg Glucagon (Glucagen Diagnostic Kit) 0 mg IM STAT PRN; Protocol PRN Reason: Hypoglycemia Protocol Dextrose (Dextrose 5% In Water 1000 Ml) 1,000 mls @ 0 mls/hr IV .Q0M PRN; Protocol PRN Reason: Hypoglycemia Protocol Insulin Human Regular (Novolin R) 0 unit SC ACHS [facility]; Protocol Last Admin: 05/11/18 22:08 Dose: Not Given Levetiracetam (Keppra) 500 mg PO BID [facility] Last Admin: 05/11/18 17:44 Dose: 500 mg Lidocaine (Lidoderm) 1 ea TD DAILY [facility] Last Admin: 05/11/18 09:50 Dose: 1 ea Metoprolol Tartrate (Lopressor) 25 mg PO BID [facility] Last Admin: 05/11/18 17:44 Dose: 25 mg Mirtazapine (Remeron) 45 mg PO HS [facility] Last Admin: 05/11/18 21:41 Dose: 45 mg Nicotine (Nicoderm Cq) 1 patch TD DAILY PRN PRN Reason: nicotine withdrawal Rosuvastatin Calcium (Crestor) 5 mg PO HS [facility] Last Admin: 05/11/18 22:10 Dose: 5 mg Zolpidem Tartrate (Ambien) 5 mg PO 2000 [facility] Last Admin: 05/11/18 21:42 Dose: 5 mg - Labs Labs: 05/11/18 08:26 05/11/18 08:26 PT 14.1 SECONDS (9.7-12.2) H 05/11/18 08:26 INR 1.3 05/11/18 08:26 APTT 76 SECONDS (21-34) H 05/07/18 07:42
[2018-05-12] MEDS: (Novolin R) Insulin Human Regular 100 units/ml vial SC SCH ×2 (07:34→11:55)
--- NOTE | 2018-05-12 08:10 | PCM.EEG ---
Electroencephalogram Report - Electroencephalogram Report Procedure Date: 05/09/18 Medication: Digoxin, Insulin, remeron Interpretation: Technical Information: This was a 16-channel EEG, 1-channel EKG routine EEG performed using [employer] equipment. Electrodes were applied using the 10/20 international placement system. Start; 10;52 End; 11;22 Total 27 min Clinical Information: Alter mental status EEG Details During the entire study was not discernible awake EEG architecture, the EEG showed an asymmetry, with righ tisde being more attenuated, than the left.. Tthe tracing showed diffuse bilateral attenuation slowing right more than left with frequencies in the 6 to 7 Hz. seen on the left, there was some reactivity of the EEG. The The right side showed focal continuous 4 to5 Hz attenuated slowing. Drowsiness not seen, sleep not seen. Hyperventilation was not performed. Photic stimulation was not performed. 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 The findings are also in keeping with an focal cortical abnormality involving the right hemisphere in keeping with an structural abnormality i n the same area. No seizures. Patient is not in status epilepticus.
[2018-05-12 08:48] VITALS: BP 155/78; PULSE 88; O2SAT 95
[2018-05-12 08:52] LABS: BASO % 0.4 % (0.0-2.0); EOS # 0.2 K/uL (0.0-0.7); EOS % 3.8 % (0.0-4.0); HEMOGLOBIN 10.3 g/dL (11.0-16.0); LYMPH # 1.3 K/uL (1.0-4.3); LYMPH % 21.4 % (20.0-40.0); MEAN CELL VOLUME 79.2 fL (81.0-99.0); MEAN CORPUSCULAR HEMOGLOBIN 25.1 pg (27.0-31.0); MEAN CORPUSCULAR HGB CONC 31.7 g/dL (33.0-37.0); MEAN PLATELET VOLUME 8.7 fL (7.2-11.7); MONO # 0.4 K/uL (0.0-0.8); MONO % 6.4 % (0.0-10.0); NEUT # 4.3 K/uL (1.8-7.0); NRBC % 0.1 % (0.0-2.0); RBC 4.09 Mil/uL (3.80-5.20); RED CELL DISTRIBUTION WIDTH 16.2 % (11.5-14.5); WHITE BLOOD COUNT 6.3 K/uL (4.8-10.8)
[2018-05-12 09:06] LABS: INR 1.9; PROTHROMBIN TIME 20.7 SECONDS (9.7-12.2)
[2018-05-12 09:15] LABS: ALB/GLOB RATIO 1.3 (1.0-2.1); ALBUMIN 3.2 g/dL (3.5-5.0); ALT/SGPT 13 U/L (9-52); AST/SGOT 25 U/L (14-36); BLOOD UREA NITROGEN 6 mg/dL (7-17); CALCIUM 8.7 mg/dl (8.6-10.4); GFR NON-AFRICAN AMERICAN 53
[2018-05-12] MEDS: Lidocaine 5% Patch TD SCH (10:00)
[2018-05-12] MEDS: Enoxaparin 60 mg Syringe SC SCH (11:55)
--- NOTE | 2018-05-12 12:04 | CP.PCM.DIS ---
<Estrella Wright - Last Filed: 05/12/18 13:02> Provider - Provider Date of Admission: 05/07/18 08:59 Attending physician: Lesley Neal MD Consults: 05/07/18 07:35 Stroke Team Consult Stat Comment: Consulting Provider: Neurohospitalist Consulting Physician: NEUROHOSP Neurohospitalist for Consult: Jacinto Best Neurohospitalist for Consult: Keyon Little Reason for Consult: code stroke 05/08/18 20:33 Palliative Care Consult Routine Comment: Consulting Provider: Yamileth Juan Physician Instructions: Reason For Exam: creation of polst Time Spent in preparation of Discharge (in minutes): 30 Diagnosis - Discharge Diagnosis (1) TIA (transient ischemic attack) Status: Suspected (2) Afib Status: Chronic Hospital Course - Lab Results Lab Results: Micro Results 05/08/18 13:17 Urine,Catheterized Urine Culture - Final No Growth (<1,000 CFU/ML) Most Recent Lab Values WBC 6.3 K/uL (4.8-10.8) 05/12/18 08:30 RBC 4.09 Mil/uL (3.80-5.20) 05/12/18 08:30 Hgb 10.3 g/dL (11.0-16.0) L 05/12/18 08:30 Hct 32.4 % (34.0-47.0) L 05/12/18 08:30 MCV 79.2 fL (81.0-99.0) L 05/12/18 08:30 MCH 25.1 pg (27.0-31.0) L 05/12/18 08:30 MCHC 31.7 g/dL (33.0-37.0) L 05/12/18 08:30 RDW 16.2 % (11.5-14.5) H 05/12/18 08:30 Plt Count 230 K/uL (130-400) 05/12/18 08:30 MPV 8.7 fL (7.2-11.7) 05/12/18 08:30 Neut % (Auto) 68.0 % (50.0-75.0) 05/12/18 08:30 Lymph % (Auto) 21.4 % (20.0-40.0) 05/12/18 08:30 [place] % (Auto) 6.4 % (0.0-10.0) 05/12/18 08:30 Eos % (Auto) 3.8 % (0.0-4.0) 05/12/18 08:30 Baso % (Auto) 0.4 % (0.0-2.0) 05/12/18 08:30 Neut # (Auto) 4.3 K/uL (1.8-7.0) 05/12/18 08:30 Lymph # (Auto) 1.3 K/uL (1.0-4.3) 05/12/18 08:30 [place] # (Auto) 0.4 K/uL (0.0-0.8) 05/12/18 08:30 Eos # (Auto) 0.2 K/uL (0.0-0.7) 05/12/18 08:30 Baso # (Auto) 0.0 K/uL (0.0-0.2) 05/12/18 08:30 PT 20.7 SECONDS (9.7-12.2) H D 05/12/18 08:30 INR 1.9 D 05/12/18 08:30 APTT 76 SECONDS (21-34) H 05/07/18 07:42 Sodium 141 mmol/L (132-148) 05/12/18 08:30 Potassium 3.8 mmol/L (3.6-5.2) 05/12/18 08:30 Chloride 103 mmol/L (98-107) 05/12/18 08:30 Carbon Dioxide 34 mmol/L (22-30) H 05/12/18 08:30 Anion Gap 7 (10-20) L 05/12/18 08:30 BUN 6 mg/dL (7-17) L 05/12/18 08:30 Creatinine 1.0 mg/dL (0.7-1.2) 05/12/18 08:30 Est GFR ( Amer) > 60 05/12/18 08:30 Est GFR (Non-Af Amer) 53 05/12/18 08:30 POC Glucose (mg/dL) 194 mg/dL (65-110) H 05/12/18 11:33 Random Glucose 117 mg/dL (65-105) H 05/12/18 08:30 Hemoglobin A1c 6.8 % (4.2-6.5) H 05/07/18 07:42 Calcium 8.7 mg/dl (8.6-10.4) 05/12/18 08:30 Phosphorus 3.3 mg/dL (2.5-4.5) 05/12/18 08:30 Magnesium 1.5 mg/dL (1.6-2.3) L 05/12/18 08:30 Total Bilirubin 0.4 mg/dL (0.2-1.3) 05/12/18 08:30 AST 25 U/L (14-36) 05/12/18 08:30 ALT 13 U/L (9-52) 05/12/18 08:30 Alkaline Phosphatase 93 U/L (38-126) 05/12/18 08:30 Troponin I < 0.0120 ng/mL (0.00-0.120) 05/07/18 07:42 Total Protein 5.7 g/dL (6.3-8.3) L 05/12/18 08:30 Albumin 3.2 g/dL (3.5-5.0) L 05/12/18 08:30 Globulin 2.5 gm/dL (2.2-3.9) 05/12/18 08:30 Albumin/Globulin Ratio 1.3 (1.0-2.1) 05/12/18 08:30 Triglycerides 225 mg/dL (0-149) H 05/07/18 07:42 Cholesterol 138 mg/dL (0-199) 05/07/18 07:42 LDL Cholesterol Direct 79 mg/dL (0-129) 05/07/18 07:42 HDL Cholesterol 29 mg/dL (30-70) L 05/07/18 07:42 Urine Color Straw (YELLOW) 05/08/18 13:17 Urine Clarity Clear (Clear) 05/08/18 13:17 Urine pH 5.0 (5.0-8.0) 05/08/18 13:17 Ur Specific [place] 1.005 (1.003-1.030) 05/08/18 13:17 Urine Protein Negative mg/dL (NEGATIVE) 05/08/18 13:17 Urine Glucose (UA) Normal mg/dL (Normal) 05/08/18 13:17 Urine Ketones Negative mg/dL (NEGATIVE) 05/08/18 13:17 Urine Blood Negative (NEGATIVE) 05/08/18 13:17 Urine Nitrate Negative (NEGATIVE) 05/08/18 13:17 Urine Bilirubin Negative (NEGATIVE) 05/08/18 13:17 Urine Urobilinogen Normal mg/dL (0.2-1.0) 05/08/18 13:17 Ur Leukocyte Esterase Neg Gerry/uL (Negative) 05/08/18 13:17 Urine WBC (Auto) < 1 /hpf (0-5) 05/08/18 13:17 Urine RBC (Auto) < 1 /hpf (0-3) 05/08/18 13:17 Urine Bacteria Rare (<OCC) 05/08/18 13:17 Digoxin 0.5 ng/mL (0.8-2.0) L 05/07/18 09:03 Blood Type A POSITIVE 05/07/18 07:42 Antibody Screen Negative 05/07/18 07:42 - Hospital Course Hospital Course: Patient was evaluated for complaints of weakness and slurred speech. CODE STROKE called in ED, workup revealed: CT head: no acute pathology - Repeat negative CTA head/neck: no acute pathology Patient's INR elevated at 7.5. Patient's coumadin held, and given Vit K Neurology, Dr. Little consulted. Patient started on Keppra 500mg BID - MRI brain: No acute intracranial abnormality. Cystic encephalomalacia and gliosis in the right posterior temporal lobe, sequela of remote MCA territory infarction. Moderate chronic microangiopathic changes and mild age-related global parenchymal volume loss. Patient's AFib was well controlled, monitored by telemetry. Home meds continued. Patient's symptoms resolved during admission. Coumadin resumed. Patient being discharged with INR of 1.9; pt to follow up repeat INR on wednesday with PMD. Echo revealed severe aortic stenosis, patient to follow up with PMD regarding findings HPI on admission: "Patient is an 82 yo female with Afib (on warfarin), HTN, HLD, T2DM, h/o CVA, and h/o breast cancer who presents with l-sided facial twitching and slurred speech. Patient's daughter is at bedside who helps provide the history. She states that the patient had a stroke 2.5 years ago but has no residual deficits. At baseline, patient ambulates but is slow. Last night, the patient was walking up the stairs and fell. Her family was able to catch her so that she only dropped to her knees. After this, the patient went to bed. Upon awakening this morning, the patient's daughter noticed that she had L-sided facial twitching and had unintelligible speech. When she could understand the patient, she said she was "talking nonsense." She also appeared agitated, pulling at her clothes, and seemed confused. Patient's daughter states that she has been at her baseline health prior to this- she has been eating/drinking, urinating/having BMs, denies fevers/chills. Upon arrival to the ED, patient was more coherent, but daughter states that she is not completely back to her mental baseline. She continues to be fatigued and occasionally becomes confused. She is able to move all of her limbs and her speech is clear. Patient's daughter states that twitching has stopped. Patient says that she is thirsty. Patient's daughter says that she has been compliant with her meds, and she gets her INR checked monthly." For further details, refer to EMR Discharge Exam - Head Exam Head Exam: ATRAUMATIC, NORMAL INSPECTION, NORMOCEPHALIC - Eye Exam Eye Exam: EOMI, Normal appearance - ENT Exam ENT Exam: Normal Exam - Neck Exam Neck exam: Normal Inspection - Respiratory Exam Respiratory Exam: Clear to PA & Lateral, NORMAL BREATHING PATTERN, UNREMARKABLE - Cardiovascular Exam Cardiovascular Exam: REGULAR RHYTHM, +S1, +S2, Systolic Murmur - GI/Abdominal Exam GI & Abdominal Exam: Normal Bowel Sounds, Unremarkable. absent: Distended - Extremities Exam Extremities exam: normal inspection, pedal pulses present - Neurological Exam Neurological exam: Alert, Normal Gait, Oriented x3 - Psychiatric Exam Psychiatric exam: Normal Affect, Normal Mood - Skin Skin Exam: Dry, Intact, Normal Color, Warm Discharge Plan - Discharge Medications Prescriptions: levETIRAcetam [Keppra] 500 mg PO BID #28 tab - Follow Up Plan Condition: GUARDED Disposition: HOME/ ROUTINE Instructions: Atrial Fibrillation (DC), Stroke (DC), Vitamin K Diet, Seizures, Adult (DC), Levetiracetam, Warfarin Additional Instructions: Patient stable for discharge home. Patient instructed to resume home Coumadin dose 3mg, daily. Patient will be given a prescription to be filled for Keppra to be taken twice per day, once in the morning, and once in the evening. Patient instructed to follow up with Neurology, Dr. Little within 1 week of discharge for further evaluation Patient instructed to follow up with PMD immediately upon discharge and have INR blood level checked no later that 05/16/18. Patient instructed to resume all other home medication prescribed before coming into hospital including: Warfarin (Coumadin) 3 mg PO DAILY Digoxin (Digoxin) 0.125 mg PO DAILY Levetiracetam (Keppra) 500 mg PO BID Metoprolol Tartrate (Lopressor) 25 mg PO BID Mirtazapine (Remeron) 45 mg PO HS Atorvastatin (Lipitor) 10 mg PO HS In addition, patient should start taking Aspirin, 81 mg Daily Patient instructed to return to the Emergency Department with any worsening of symptoms. Referrals: Keyon Little MD [Staff Provider] - Clinical Quality Measures - CQM - Stroke Antithrombotic Prescribed: Yes Anticoagulation Prescribed for Atrial Flutter, Atrial Fibrillation and History of:: Yes Statin prescribed: Yes - CQM - VTE Did patient receive overlap therapy during hosptialization?: Yes If yes, what was given to the patient?: lovenox/coumadin Is patient being discharged on overlap therapy?: No If no, please select a reason why:: Use of Anticoagulants - CQM - Heart Failure Ejection Fraction: 40 % or Greater - Date & Time of Discharge Summary Date of Discharge Summary: 05/12/18 Time of Discharge Summary: 12:57 <Moiz Reis - Last Filed: 05/12/18 15:19> Provider - Provider Date of Admission: 05/07/18 08:59 Attending physician: Lesley Neal MD Consults: 05/07/18 07:35 Stroke Team Consult Stat Comment: Consulting Provider: Neurohospitalist Consulting Physician: NEUROHOSP Neurohospitalist for Consult: Jacinto Best Neurohospitalist for Consult: Keyon Little Reason for Consult: code stroke 05/08/18 20:33 Palliative Care Consult Routine Comment: Consulting Provider: Yamileth Juan Physician Instructions: Reason For Exam: creation of [facility] Hospital Course - Lab Results Lab Results: Micro Results 05/08/18 13:17 Urine,Catheterized Urine Culture - Final No Growth (<1,000 CFU/ML) Most Recent Lab Values WBC 6.3 K/uL (4.8-10.8) 05/12/18 08:30 RBC 4.09 Mil/uL (3.80-5.20) 05/12/18 08:30 Hgb 10.3 g/dL (11.0-16.0) L 05/12/18 08:30 Hct 32.4 % (34.0-47.0) L 05/12/18 08:30 MCV 79.2 fL (81.0-99.0) L 05/12/18 08:30 MCH 25.1 pg (27.0-31.0) L 05/12/18 08:30 MCHC 31.7 g/dL (33.0-37.0) L 05/12/18 08:30 RDW 16.2 % (11.5-14.5) H 05/12/18 08:30 Plt Count 230 K/uL (130-400) 05/12/18 08:30 MPV 8.7 fL (7.2-11.7) 05/12/18 08:30 Neut % (Auto) 68.0 % (50.0-75.0) 05/12/18 08:30 Lymph % (Auto) 21.4 % (20.0-40.0) 05/12/18 08:30 [place] % (Auto) 6.4 % (0.0-10.0) 05/12/18 08:30 Eos % (Auto) 3.8 % (0.0-4.0) 05/12/18 08:30 Baso % (Auto) 0.4 % (0.0-2.0) 05/12/18 08:30 Neut # (Auto) 4.3 K/uL (1.8-7.0) 05/12/18 08:30 Lymph # (Auto) 1.3 K/uL (1.0-4.3) 05/12/18 08:30 [place] # (Auto) 0.4 K/uL (0.0-0.8) 05/12/18 08:30 Eos # (Auto) 0.2 K/uL (0.0-0.7) 05/12/18 08:30 Baso # (Auto) 0.0 K/uL (0.0-0.2) 05/12/18 08:30 PT 20.7 SECONDS (9.7-12.2) H D 05/12/18 08:30 INR 1.9 D 05/12/18 08:30 APTT 76 SECONDS (21-34) H 05/07/18 07:42 Sodium 141 mmol/L (132-148) 05/12/18 08:30 Potassium 3.8 mmol/L (3.6-5.2) 05/12/18 08:30 Chloride 103 mmol/L (98-107) 05/12/18 08:30 Carbon Dioxide 34 mmol/L (22-30) H 05/12/18 08:30 Anion Gap 7 (10-20) L 05/12/18 08:30 BUN 6 mg/dL (7-17) L 05/12/18 08:30 Creatinine 1.0 mg/dL (0.7-1.2) 05/12/18 08:30 Est GFR ( Amer) > 60 05/12/18 08:30 Est GFR (Non-Af Amer) 53 05/12/18 08:30 POC Glucose (mg/dL) 194 mg/dL (65-110) H 05/12/18 11:33 Random Glucose 117 mg/dL (65-105) H 05/12/18 08:30 Hemoglobin A1c 6.8 % (4.2-6.5) H 05/07/18 07:42 Calcium 8.7 mg/dl (8.6-10.4) 05/12/18 08:30 Phosphorus 3.3 mg/dL (2.5-4.5) 05/12/18 08:30 Magnesium 1.5 mg/dL (1.6-2.3) L 05/12/18 08:30 Total Bilirubin 0.4 mg/dL (0.2-1.3) 05/12/18 08:30 AST 25 U/L (14-36) 05/12/18 08:30 ALT 13 U/L (9-52) 05/12/18 08:30 Alkaline Phosphatase 93 U/L (38-126) 05/12/18 08:30 Troponin I < 0.0120 ng/mL (0.00-0.120) 05/07/18 07:42 Total Protein 5.7 g/dL (6.3-8.3) L 05/12/18 08:30 Albumin 3.2 g/dL (3.5-5.0) L 05/12/18 08:30 Globulin 2.5 gm/dL (2.2-3.9) 05/12/18 08:30 Albumin/Globulin Ratio 1.3 (1.0-2.1) 05/12/18 08:30 Triglycerides 225 mg/dL (0-149) H 05/07/18 07:42 Cholesterol 138 mg/dL (0-199) 05/07/18 07:42 LDL Cholesterol Direct 79 mg/dL (0-129) 05/07/18 07:42 HDL Cholesterol 29 mg/dL (30-70) L 05/07/18 07:42 Urine Color Straw (YELLOW) 05/08/18 13:17 Urine Clarity Clear (Clear) 05/08/18 13:17 Urine pH 5.0 (5.0-8.0) 05/08/18 13:17 Ur Specific [place] 1.005 (1.003-1.030) 05/08/18 13:17 Urine Protein Negative mg/dL (NEGATIVE) 05/08/18 13:17 Urine Glucose (UA) Normal mg/dL (Normal) 05/08/18 13:17 Urine Ketones Negative mg/dL (NEGATIVE) 05/08/18 13:17 Urine Blood Negative (NEGATIVE) 05/08/18 13:17 Urine Nitrate Negative (NEGATIVE) 05/08/18 13:17 Urine Bilirubin Negative (NEGATIVE) 05/08/18 13:17 Urine Urobilinogen Normal mg/dL (0.2-1.0) 05/08/18 13:17 Ur Leukocyte Esterase Neg Gerry/uL (Negative) 05/08/18 13:17 Urine WBC (Auto) < 1 /hpf (0-5) 05/08/18 13:17 Urine RBC (Auto) < 1 /hpf (0-3) 05/08/18 13:17 Urine Bacteria Rare (<OCC) 05/08/18 13:17 Digoxin 0.5 ng/mL (0.8-2.0) L 05/07/18 09:03 Blood Type A POSITIVE 05/07/18 07:42 Antibody Screen Negative 05/07/18 07:42 Attending/Attestation - Attestation I have personally seen and examined this patient.: Yes I have fully participated in the care of the patient.: Yes I have reviewed all pertinent clinical information, including history, physical exam and plan: Yes
== END 2018-05-12 14:16 | disposition home or self-care (01) | DRG 47 ==
LOC: C.ER 07:33 → C.9E 08:59 → C.6T 09:51 → C.5S 05-08 05:42
PROVIDERS: ADMIT Internal Medicine; ATTEND Internal Medicine
DX: G45.9 Transient cerebral ischemic attack, unspecified (principal); E11.22 Type 2 diabetes mellitus with diabetic chronic kidney disease; R56.9 Unspecified convulsions; I48.2 Chronic atrial fibrillation; R41.4 Neurologic neglect syndrome; E78.5 Hyperlipidemia, unspecified; I12.9 Hypertensive chronic kidney disease with stage 1 through stage 4 chronic kidney disease, or unspecified chronic kidney disease; E04.9 Nontoxic goiter, unspecified; I35.0 Nonrheumatic aortic (valve) stenosis; R29.810 Facial weakness; R79.1 Abnormal coagulation profile; Z51.5 Encounter for palliative care; Z66 Do not resuscitate; Z79.01 Long term (current) use of anticoagulants; Z85.3 Personal history of malignant neoplasm of breast; Z87.891 Personal history of nicotine dependence; R29.706 NIHSS score 6; N18.9 Chronic kidney disease, unspecified